=== PATIENT | male | born 1965 | race Caucasian/White ===

== ENCOUNTER 2017-08-07 10:09 | Inpatient (IN) ==
[2017-08-07] MEDS ORDERED: ONDANSETRON 4 MG/2 ML VIAL IV ONE (10:36)
[2017-08-07] MEDS ORDERED: 0.9 % SODIUM CHLORIDE 1,000 ML IV ONE ×2 (10:36→19:00)
[2017-08-07] MEDS ORDERED: ONDANSETRON ODT 4 MG TABLET SL ONE (11:33)
[2017-08-07] MEDS ORDERED: ELECTROLYTE,ORAL 1,000 ML SOLUTION PO ONE (12:03)
[2017-08-07 12:06] LABS: Basophils # (Auto) 0.1 K/mcL (0.0-0.3); Basophils % (Auto) 0.4 % (0.0-2.0); Eosinophils # (Auto) 0 K/mcL (0.0-0.7); Eosinophils % (Auto) 0 % (0.0-7.0); Lymphocytes # (Auto) 1.5 K/mcL (1.5-4.8); Lymphocytes % (Auto) 8.7 % (15.5-49.0); Mean Cell Volume 92.8 fL (80.0-100.0); Mean Corpuscular HGB Conc 33.4 g/dL (31.0-36.0); Monocytes # (Auto) 0.7 K/mcL (0.1-0.9); Monocytes % (Auto) 3.9 % (1.0-12.0); Platelet Count 462 K/mcL (140-440); RBC 5.79 M/mcL (4.50-5.90); Red Cell Distribution Width 12.8 % (11.5-14.5)
[2017-08-07 13:40] LABS: ALT/SGPT 33 U/l (0-40); Albumin 5.1 gm/dL (3.2-5.2); Albumin/Globulin Ratio 1.2 (1.0-2.3); Alkaline Phosphatase 118 U/L (39-117); Blood Urea Nitrogen 54 mg/dl (6-20)
[2017-08-07] MEDS ORDERED: 0.9 % SODIUM CHLORIDE 10 ML SYRINGE IV PRN (14:20)
--- NOTE | 2017-08-07 14:32 | Procedure Note ---
Procedures - Central Line Placement Right SC Consent obtained: verbal consent Time out performed: Yes Patient placed on monitor/pulse ox: Yes MD prep: mask, sterile gown, sterile gloves, cap Central line prep: 2% Chlorhexidine scrub (X 2) Local anesthesia used: lidocaine 1% Amount of anesthesia used (mls): 15 Ultrasound used for placement: No Central line lumen inserted: quad, 16 cm Post procedure: sutured in place, good blood return, all ports aspirated, flushed, capped, sterile dressing applied Post procedure x-ray: other (awaiting CXR) Patient tolerated procedure: well, no complications Complications: none Additional comments: called by Ed for PIV, attempt X 2, failed. Then learned of his Cr 6.2, pt denies any renal hx. Decision then made with Dr Espinoza in consult to place central line. Performed with min amount of difficulty, attempt SCV, unable to wire. Change to supraclavicular approach, done wo problem. Pt terrence well, received MORPHINE IM prior to procedure. Awaiting CXR result for placement.
--- NOTE | 2017-08-07 14:34 | Emergency Department Note ---
ED Note Addendum Note Addendum: I examined this patient and agree with the assessment and plan the mid-level provider.
--- NOTE | 2017-08-07 15:32 | Emergency Department Note ---
Abdominal Pain HPI - General Chief Complaint: Abdominal Pain Stated Complaint: vomiting abdominal pain Time Seen by Provider: 08/07/17 10:23 Source: patient Mode of arrival: ambulatory Limitations: no limitations - History of Present Illness HPI Narrative: 52-year-old male presents with a little bit of right lower back pain. States he has been vomiting at least 15 times a day since Saturday. He does acknowledge this is a chronic and ongoing issue. He has chronic abdominal pain with nausea and vomiting for which he sees Dr. Sevilla and has been to [facility] as well. He states they do not know what causes it. He states this exacerbation started on Saturday. He has not been able to get it under control since. No fever or chills. Does have constant nausea and vomiting. Denies diarrhea. No blood in his stool or emesis. States decreased urine output because he knows he is dehydrated and cannot keep anything down. He denies having a primary care provider. He has used marijuana at home which she believes normally helps with his abdominal pain and nausea which he uses on a daily basis but states this time it is not helping. He denies any cough or cold symptoms. No chest pain or shortness of breath. Describes his abdominal pain as being all over and exacerbated by vomiting. - Related Data Home Medications Medication Instructions Recorded Confirmed No Known Home Meds [No Known Home 08/07/17 08/07/17 Meds] Allergies Allergy/AdvReac Type Severity Reaction Status Date / Time No Known Drug Allergies Allergy Verified 01/16/16 07:08 Review of Systems All systems ED: reviewed and negative except as stated. Abdominal Pain PMH - Past Medical History Medical history: Reports: hypertension, renal disease, seizures, other (chronic pain, history of methamphetamine use) Family history: Reports: unable to obtain - Social History Smoking status: Current every day smoker Alcohol use: Reports: None Drug use: Reports: opiates, marijuana, methamphetamine Physical Exam Limitations: no limitations General appearance: alert, in no apparent distress Head: atraumatic, normocephalic, normal inspection Eye: Present: normal appearance. Absent: conjunctival injection ENT: TM's normal bilaterally, normal external ear exam, other (Mucous membranes are slightly dry on arrival) Neck: Present: normal inspection, trachea midline. Absent: tenderness, lymphadenopathy Chest: Present: normal inspection, symmetric chest wall rise Respiratory: Present: normal lung sounds bilaterally. Absent: respiratory distress, wheezes, accessory muscle use Cardiovascular: Present: regular rate, normal heart sounds Abdominal: Present: soft, tenderness (Diffuse moderate abdominal tenderness but no guarding. Patient is climbing all over the bed and is constantly fidgeting) , normal bowel sounds. Absent: distention, organomegaly, mass : Present: other (Please see urine dip) Extremities: Present: normal inspection, normal capillary refill. Absent: pedal edema Back: Present: CVA tenderness (R). Absent: CVA tenderness (L) Neurological: Present: alert, oriented X3 Psychiatric: Present: anxious Skin: Present: warm, dry, intact, normal color Course Course Narrative: Patient was here for a couple hours where we attempted IV access and were unsuccessful. Lab was able to get a CBC but not a CMP or further labs. Patient was given some oral Zofran and tolerated an oral fluid challenge but then continued dry heaving and having abdominal pain. After multiple failed IV attempts again anesthesia was called for IV placement and further lab draw. Central line was placed by Dr. Lin and at that time he also got a creatinine back eventually from lab off of a different draw that was 6.2. This is a significant increase is the highest I have seen in his previous records was in the threes. We will hydrate the patient with normal saline and we are awaiting CT results at this time. At [address] Dr[address] Read who is on-call for nephrology who agrees to consult. Dr. Lozano the hospitalist agrees to admit Vital Signs Temperature 97.4 F 08/07/17 10:10 Pulse Rate 94 H 08/07/17 10:10 Respiratory Rate 18 08/07/17 10:10 Blood Pressure 136/99 08/07/17 10:10 Pulse Oximetry (%) 99 08/07/17 10:10 Temperature 97.4 F 08/07/17 10:10 Pulse Rate 76 08/07/17 16:31 Respiratory Rate 20 08/07/17 16:52 Blood Pressure 202/106 08/07/17 16:56 Pulse Oximetry (%) 100 08/07/17 16:31 Abdominal Pain - Lab Data Lab results reviewed: Yes I reviewed the patient's lab results. Result diagrams: 08/07/17 11:42 08/07/17 12:42 Lab Results 06/08/07/17 08/07/17 Range/Units 11:42 11:42 12:42 WBC 17.5 H (4.5-11.0) K/mcL RBC 5.79 (4.50-5.90) M/mcL Hgb 18.0 H (13.5-16.5) g/dL Hct 53.7 (41.0-55.0) % MCV 92.8 (80.0-100.0) fL MCH 31.0 (26.0-34.0) pg MCHC 33.4 (31.0-36.0) g/dL RDW 12.8 (11.5-14.5) % Plt Count 462 H (140-440) K/mcL MPV 8.1 (7.4-10.4) fL Gran % 87.0 H (38.0-78.0) % Lymph % (Auto) 8.7 L (15.5-49.0) % [place] % (Auto) 3.9 (1.0-12.0) % Eos % (Auto) 0 (0.0-7.0) % Baso % (Auto) 0.4 (0.0-2.0) % Gran # 15.3 H (1.8-8.0) K/mcL Lymph # (Auto) 1.5 (1.5-4.8) K/mcL [place] # (Auto) 0.7 (0.1-0.9) K/mcL Eos # (Auto) 0 (0.0-0.7) K/mcL Baso # (Auto) 0.1 (0.0-0.3) K/mcL VBG Lactic Acid Sodium TNP 124 L Potassium TNP 4.3 Chloride TNP 74 L Carbon Dioxide TNP 22 Anion Gap TNP 28.0 H BUN TNP 54 H Creatinine TNP 6.2 H* GFR Calculation TNP 9 Glucose TNP 150 H Calcium TNP 9.4 Total Bilirubin TNP 0.8 AST TNP 27 ALT TNP 33 Alkaline Phosphatase TNP 118 H Total Protein TNP 9.2 H Albumin TNP 5.1 Globulin TNP 4.1 H Albumin/Globulin Ratio TNP 1.2 Urine Opiates Screen (NONDETECTED) Ur Oxycodone Screen (NONDETECTED) Urine Methadone Screen (NONDETECTED) Ur Barbiturates Screen (NONDETECTED) Ur Phencyclidine Scrn (NONDETECTED) Ur Amphetamines Screen (NONDETECTED) U Benzodiazepines Scrn (NONDETECTED) Urine Cocaine Screen (NONDETECTED) U Marijuana (THC) Screen (NONDETECTED) 08/07/17 08/07/17 08/07/17 Range/Units 12:42 14:30 15:59 WBC (4.5-11.0) K/mcL RBC (4.50-5.90) M/mcL Hgb (13.5-16.5) g/dL Hct (41.0-55.0) % MCV (80.0-100.0) fL MCH (26.0-34.0) pg MCHC (31.0-36.0) g/dL RDW (11.5-14.5) % Plt Count (140-440) K/mcL MPV (7.4-10.4) fL Gran % (38.0-78.0) % Lymph % (Auto) (15.5-49.0) % [place] % (Auto) (1.0-12.0) % Eos % (Auto) (0.0-7.0) % Baso % (Auto) (0.0-2.0) % Gran # (1.8-8.0) K/mcL Lymph # (Auto) (1.5-4.8) K/mcL [place] # (Auto) (0.1-0.9) K/mcL Eos # (Auto) (0.0-0.7) K/mcL Baso # (Auto) (0.0-0.3) K/mcL VBG Lactic Acid TNP 1.9 Sodium Potassium Chloride Carbon Dioxide Anion Gap BUN Creatinine GFR Calculation Glucose Calcium Total Bilirubin AST ALT Alkaline Phosphatase Total Protein Albumin Globulin Albumin/Globulin Ratio Urine Opiates Screen Suspect positive A (NONDETECTED) Ur Oxycodone Screen None detected (NONDETECTED) Urine Methadone Screen None detected (NONDETECTED) Ur Barbiturates Screen None detected (NONDETECTED) Ur Phencyclidine Scrn None detected (NONDETECTED) Ur Amphetamines Screen Suspect positive A (NONDETECTED) U Benzodiazepines Scrn Suspect positive A (NONDETECTED) Urine Cocaine Screen None detected (NONDETECTED) U Marijuana (THC) Screen Suspect positive A (NONDETECTED) - Radiology Data Radiology results reviewed: Yes I reviewed the patient's radiology results. Disposition Pt seen by [facility]/PA only: Yes Clinical Impression: Acute kidney failure, Dehydration, Abdominal pain, Vomiting Disposition: Xfer As Inpt ([facility]) Condition: Fair Time of Disposition: 17:10
--- NOTE | 2017-08-07 15:58 | Cat Scan Report ---
CLINICAL INFORMATION: Abdominal pain, flank pain and hematuria COMPARISON: 05/20/[address] TECHNIQUE: 0.625 mm helical slices were obtained from the mid heart through the subtrochanteric regions. Following reconstruction, 2.5 mm sagittal, coronal and axial reformatted images were processed and reviewed at bone and soft tissue windows.The exam was performed using radiation dose optimization techniques including, but not limited to, automated exposure control, adjustment of the mA and/or kV according to patient size and use of iterative reconstruction technique. FINDINGS: Both noncontrasted kidneys are normal and symmetric in size, position and configuration: The right is 10 x 5 cm and left is also 10 x 5 cm. 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 There is no evidence of stone or hydronephrosis. The main kidneys, upper collecting systems, ureters and urinary bladder are normal. Lung bases show no abnormality. No effusion. Visualized heart is unremarkable. Images through the abdomen show the gallbladder is surgically absent. Intrahepatic and common bile ducts are normal caliber - CBD 6 mm. The noncontrasted liver, adrenal glands, spleen, pancreas and aorta are normal. There is no free air, free fluid or adenopathy. Stomach, small bowel, large bowel and appendix are normal. Images through the pelvis show prostate, seminal vessel and urinary bladder to be normal. Moderate L5-S1 degenerative disc disease noted with disc spur, resulting in moderate IV foraminal narrowing. No other osseous abnormality. IMPRESSION: 1. 9.7 mm benign angiomyolipoma the anterior cortex mid left kidney - stable. No stone or other cause identified for hematuria Interpreted and Authenticated by: Jassi Bernabe 08/07/17
[2017-08-07] MEDS ORDERED: HYDROmorphone 2 MG/ML VIAL IV PRN (16:05)
[2017-08-07 16:41] LABS: Amphetamine Screen,Urine SUSPECT POSITIVE (NONDETECTED); Benzodiazepines Screen,Urine SUSPECT POSITIVE (NONDETECTED); Cocaine Screen,Urine NONE DETECTED (NONDETECTED); Opiate Screen,Urine SUSPECT POSITIVE (NONDETECTED); Oxycodone, Urine Screen NONE DETECTED (NONDETECTED)
[2017-08-07] MEDS ORDERED: LORazepam 2 MG/ML VIAL IV ONE (16:56)
--- NOTE | 2017-08-07 17:02 | XRay Report ---
CLINICAL INFORMATION: Central line placement COMPARISON: 07/12/2016 FINDINGS: Right subclavian central line tip overlies the SVC/azygos junction. No pneumothorax or other complication from line placement. Heart size, mediastinal and pulmonary vessels are normal. The lungs are clear. No effusions IMPRESSION: Negative chest - central line in satisfactory position Interpreted and Authenticated by: Jassi Bernabe 08/07/17
--- NOTE | 2017-08-07 17:12 | Nephrology Consult Note ---
History of Present Illness - Reason for Consult Patient information: Note initiated : 08/07/17 at 5:08 pm John Abernathy is a 52-year-old male presented to ED for abdominal pain, nausea and vomiting for 4 days and being admitted on 07/2017. Consult date: 08/07/17 acute renal failure, hyponatremia Requesting physician: Debra Glaser - Chief Complaint Abdominal pain, nausea and vomiting - History of Present Illness John Abernathy is a 52-year-old male with history of cyclic abdominal pain, nausea and vomiting, hypertension, history of cute kidney injury, history of seizures, history of methamphetamine and marijuana use presented to ED for abdominal pain , nausea and vomiting for 4 days 07/2017. Nephrology consultation was requested for acute kidney injury. Review of Systems ROS unobtainable: due to mental status Past History Past medical history: Medical History Laceration (Acute) Paronychia of right index finger (Acute) Cellulitis (Acute) Blister of finger with infection (Acute) Dehydration (Acute) Acute renal failure (Acute) Nausea & vomiting (Acute) Pancreatitis (Acute) PUD (peptic ulcer disease) (Acute) Abdominal pain (Acute) Bilious emesis (Acute) Amphetamine abuse (Acute) Past surgical history: None Past family history: No history of kidney disease in his parents or siblings Past social history: History of smoking, methamphetamine and marijuana use Medications and Allergies Home Medications Medication Instructions Recorded Confirmed Type No Known Home Meds [No Known Home 08/07/17 08/07/17 History Meds] Allergies Allergy/AdvReac Type Severity Reaction Status Date / Time No Known Drug Allergies Allergy Verified 01/16/16 07:08 Exam - Vital Signs Vital signs: Temp Pulse Resp BP Pulse Ox 97.4 F 76 20 202/106 100 08/07/17 10:10 08/07/17 16:31 08/07/17 16:52 08/07/17 16:56 08/07/17 16:31 - General Appearance General appearance: appears started age, frail EENT: mucous membranes dry Neck: supple Respiratory: wheezing Cardiology: no edema Gastrointestinal: no tenderness Integumentary: warm and dry Neurologic: obtunded Musculoskeletal: no deformities Results - Lab Results 08/07/17 11:42 08/07/17 12:42 Most recent lab results Calcium 9.4 mg/dl (8.6-10.4) 08/07/17 12:42 Assessment and Plan (1) Acute renal failure Acute kidney injury with dehydration, hyponatremia and high anion gap, present on arrival. ~There is no recent history of IV contrast administration or NSAID use. Acute glomerulonephritis or interstitial nephritis unlikely per work up. Work up: Urinalysis on 01/18/16: Yellow, Clear, pH 5.0, SG 1.010, Protein negative, occult blood 0.03. Urine random total protein/creatinine on 01/18/16: 70 mg/g creatinine. CT Abdomen and Pelvis without contrast on 08/07/17: Both noncontrasted kidneys are normal and symmetric in size, position and configuration: The right is 10 x 5 cm and left is also 10 x 5 cm. 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 There is no evidence of stone or hydronephrosis. The main kidneys, upper collecting systems, ureters and urinary bladder are normal. Treatment: NS 1 L IV bolus in ED. Recommendations: IV fluid resuscitation with NS at 100 ml/hour. No acute hemodialysis need. Avoid NSAIDs, nephrotoxic medications and IV contrast. Monitor BMP and urine output. Status: Acute Priority: Medium Qualifiers: Acute renal failure type: unspecified Qualified Code(s): N17.9 - Acute kidney failure, unspecified (2) Hyponatremia Unlikely to be chronic. Associated with severe dehydration and acute kidney injury. Recommendation: I would continue NS at 100 ml/hour. Status: Acute Priority: Medium
[2017-08-07] MEDS ORDERED: ACETAMINOPHEN 325 MG TABLET PO PRN (18:54)
[2017-08-07] MEDS ORDERED: POTASSIUM CHLORIDE 20 MEQ PACKET PO PRN (18:54)
[2017-08-07] MEDS ORDERED: MAGNESIUM SULFATE 2 GM/50 ML BAG IV PRN (18:54)
[2017-08-07] MEDS ORDERED: ONDANSETRON 4 MG/2 ML VIAL IV PRN (18:54)
[2017-08-07] MEDS ORDERED: ONDANSETRON 4 MG/2 ML VIAL ONE (19:01)
--- NOTE | 2017-08-07 19:08 | Internal Med History&Physical ---
Medical - H&P: [facility] Patient information: Note initiated : 08/07/17 at 7:04 pm Service Date, if different from initiated Date: [] Patient: John Abernathy a 52 y/o M admitted on 08/07/17 for vomiting abdominal pain. Chief Complaint: [] Chief complaint: nausea vomiting abdominal pain History of present illness: Mr. Abernathy is a 52 year old M with a history of methamphetamine abuse and prior hospitalization with renal failure and methamphetamine intoxication comes in with severe abdominal pain, nausea vomiting and weakness. His symptoms started roughly 36 hours ago with persistent nausea vomiting abdominal pain and inability to eat. Initial workup in the ER was significant for urine drug screen positive for methamphetamine along with blood pressures over 200, sodium 124, white count over 17,000, creatinine over 6, elevated anion gap 28 and mental status changes. Emergent central line was secured and IV fluids were started. After receiving crystalloids hospitalist service was consulted for admission light of acute renal failure and amphetamine intoxication Left eye evaluation patient is fairly sedated. Blood pressures over 160. He was not able to provide any history. Most of the history is obtained from review of medical records and from [facility]. Patient is afebrile, denies chest pain/diaphoresis. Appears calm Review of systems 10 point review systems was performed and is negative except as discussed above Medical - H&P: PMH Medical history: Medical History Laceration (Acute) Paronychia of right index finger (Acute) Cellulitis (Acute) Blister of finger with infection (Acute) Dehydration (Acute) Acute renal failure (Acute) Nausea & vomiting (Acute) Pancreatitis (Acute) PUD (peptic ulcer disease) (Acute) Abdominal pain (Acute) Bilious emesis (Acute) Amphetamine abuse (Acute) Pertinent family history: Could not be obtained Social history: History of marijuana/amphetamine use Medical - H&P: Meds Home Medications Medication Instructions Recorded Confirmed Type No Known Home Meds [No Known Home 08/07/17 08/07/17 History Meds] Allergies Allergy/AdvReac Type Severity Reaction Status Date / Time No Known Drug Allergies Allergy Verified 01/16/16 07:08 Medical - H&P: Exam - Constitutional Vitals: Temp Pulse Resp BP Pulse Ox 97.4 F 85 15 190/100 100 08/07/17 19:00 08/07/17 19:00 08/07/17 19:00 08/07/17 19:00 08/07/17 19:00 General appearance: no acute distress Exam: Sedated Pupils symmetric No facial droop Oral cavity dry No ear discharge Head normocephalic Neck no lymphadenopathy Chest right subclavian central line S1 and S2 regular rhythm Diminished breath sounds bases Abdomen soft Lower extremity mottling around knees Psych lethargic sedated Neuro moving all 4 extremities Medical - H&P: Reslt - Labs CBC & Chem 7: 08/08/17 03:49 08/08/17 03:49 Labs: Short CBC 08/07/17 Range/Units 11:42 WBC 17.5 H (4.5-11.0) K/mcL Hgb 18.0 H (13.5-16.5) g/dL Hct 53.7 (41.0-55.0) % Plt Count 462 H (140-440) K/mcL BMP 08/07/17 08/07/17 11:42 12:42 Sodium TNP 124 L Potassium TNP 4.3 Chloride TNP 74 L Carbon Dioxide TNP 22 BUN TNP 54 H Creatinine TNP 6.2 H* Glucose TNP 150 H Calcium TNP 9.4 Cardiac Enzymes 08/07/17 Range/Units 12:42 Troponin T < 0.01 (0-0.03) ng/ml Liver Function 08/07/17 08/07/17 Range/Units 11:42 12:42 Total Bilirubin TNP 0.8 AST TNP 27 ALT TNP 33 Alkaline Phosphatase TNP 118 H Albumin TNP 5.1 Medical - H&P: A/P (1) Amphetamine intoxication delirium Current visit: Yes Status: Acute * Amphetamine intoxication-continue aggressive benzodiazepines for psychomotor agitation/hypertension and symptom management. Continue crystalloids and supportive management. Transfer to ICU for close hemodynamic monitoring. Continue crystalloids. * Hypertensive urgency-secondary to methamphetamine. Continue benzodiazepines. Nitroprusside drip if inadequate control. * Acute renal failure- secondary to methamphetamine induced rhabdomyolysis/ volume depletion. Check CK . CT abdomen no evidence of obstructive uropathy. Continue aggressive crystalloids. * Full code Plan * Admitted to ICU * Symptomatic management/IV benzodiazepines/nitroprusside * Aggressive crystalloids Over 35 mins critical care time spent on management of Amphetamine overdose treatment, stabilizing pt and transfer to ICU
[2017-08-07 19:57] LABS: Creatine Kinase 865 IU/L (24-195)
[2017-08-07] MEDS: 0.9 % SODIUM CHLORIDE 250 ML IV SCH (20:00)
[2017-08-07] MEDS: NITROPRUSSIDE 50 MG in DEXTROSE 5% IN WATER 248 ML IV SCH (20:00)
[2017-08-07] MEDS: LORazepam 2 MG/ML VIAL IV PRN (20:12)
[2017-08-07] MEDS ORDERED: 0.9 % SODIUM CHLORIDE 10 ML SYRINGE IV SCH (21:00)
[2017-08-07] MEDS: LACTATED RINGERS 1,000 ML IV SCH (21:00)
[2017-08-07] MEDS: HEPARIN 5,000 UNIT/ML VIAL SQ SCH (21:08)
[2017-08-07] MEDS: SENNOSIDES/DOCUSATE SODIUM 1 TAB TABLET PO SCH (21:08)
[2017-08-07] MEDS: DOCUSATE SODIUM 100 MG CAPSULE PO SCH (21:08)
[2017-08-07] MEDS: 0.9 % SODIUM CHLORIDE 10 ML SYRINGE IV SCH (22:38)
[2017-08-08] MEDS: LORazepam 2 MG/ML VIAL IV PRN ×16 (00:15→23:45)
[2017-08-08] MEDS: LACTATED RINGERS 1,000 ML IV SCH ×4 (04:11→23:57)
[2017-08-08] MEDS: 0.9 % SODIUM CHLORIDE 10 ML SYRINGE IV SCH ×3 (05:25→23:45)
[2017-08-08 05:28] LABS: Mean Cell Volume 94.2 fL (80.0-100.0); Mean Corpuscular HGB Conc 33.7 g/dL (31.0-36.0); Mean Corpuscular Hemoglobin 31.7 pg (26.0-34.0); Platelet Count 392 K/mcL (140-440); RBC 4.49 M/mcL (4.50-5.90); Red Cell Distribution Width 12.7 % (11.5-14.5)
[2017-08-08 05:59] LABS: ALT/SGPT 25 U/l (0-40); Albumin 3.6 gm/dL (3.2-5.2); Albumin/Globulin Ratio 1.1 (1.0-2.3); Alkaline Phosphatase 99 U/L (39-117); Bilirubin,Direct < 0.2 mg/dL (0.0-0.3); Blood Urea Nitrogen 52 mg/dl (6-20); Gamma Glutamyl Transpeptidase 14 U/L (8-61); Uric Acid 11.3 mg/dL (2.5-8.0)
[2017-08-08 06:23] LABS: Band Neutrophils % 2 % (0-10); Lymphocytes % 10 % (15-49); Monocytes % (Manual) 8 % (1-12); Platelet Estimate NORMAL (NORMAL); RBC Morphology NORMAL (NORMAL); Segmented Neutrophils % 80 % (38-78)
[2017-08-08] MEDS: 0.9 % SODIUM CHLORIDE 250 ML IV SCH ×3 (06:42→18:06)
--- NOTE | 2017-08-08 07:13 | Nephrology Progress Note ---
Subjective Patient information: Note initiated : 08/08/17 at 7:10 am John Abernathy is a 52-year-old male with history of cyclic abdominal pain, nausea and vomiting, hypertension, history of cute kidney injury, history of seizures, history of methamphetamine and marijuana use presented to ED for abdominal pain , nausea and vomiting for 4 days 07/2017. Chief Complaint: Abdominal pain, nausea and vomiting Principal diagnosis: Acute kidney injury Pertinent ROS: Unavailable due to altered mental status Objective - Vital Signs Vital signs: Vital Signs Temp Pulse Pulse Resp BP BP Pulse Ox 08/08/17 05:00 81 13 174/98 100 08/08/17 04:44 88 14 171/93 100 08/08/17 04:23 89 14 215/105 100 08/08/17 03:59 87 15 215/102 100 08/08/17 03:08 87 13 208/115 100 08/08/17 02:43 13 177/108 08/08/17 02:07 82 21 207/98 99 08/08/17 01:51 82 16 201/112 100 08/08/17 01:15 83 24 H 196/106 100 08/08/17 00:01 73 9 L 164/88 100 08/08/17 00:00 100 08/07/17 23:01 79 14 150/94 99 08/07/17 22:01 88 14 145/90 100 08/07/17 21:01 84 15 174/91 98 08/07/17 20:51 13 179/100 08/07/17 20:42 99 08/07/17 20:23 13 196/112 99 08/07/17 20:08 76 12 192/106 100 08/07/17 20:00 75 18 201/106 100 08/07/17 19:08 92 H 12 162/115 100 08/07/17 19:00 97.4 F 85 15 190/100 100 08/07/17 18:51 98.0 F 86 18 162/115 99 08/07/17 18:31 198/114 08/07/17 18:01 21 163/103 08/07/17 17:46 85 15 190/100 100 08/07/17 17:45 82 18 100 08/07/17 17:31 16 169/98 08/07/17 17:16 81 16 192/109 100 08/07/17 17:01 75 13 211/115 100 08/07/17 16:56 202/106 08/07/17 16:52 20 08/07/17 16:46 13 224/112 08/07/17 16:31 76 13 218/114 100 08/07/17 16:16 84 16 207/142 100 08/07/17 16:05 86 20 208/114 100 08/07/17 16:03 15 225/145 08/07/17 16:01 12 200/121 08/07/17 15:46 16 203/115 08/07/17 15:32 89 16 159/111 100 08/07/17 10:10 97.4 F 94 H 18 136/99 99 Intake and Output 08/07/17 08/08/17 08/08/17 21:59 05:59 13:59 Intake Total 1999 1000 / 1000 Output Total 270 / 270 1089 / 1089 140 / 140 Balance 1730 / 1730 -89 / -89 -140 / -140 Intake: IV 1999 1000 / 1000 Lactated Ringers 1,000 ml @ 150 1000 / 1000 mls/hr IV .Q6H40M [facility] Rx#: [id number] Output: Urine Catheter Amount 270 / 270 1089 / 1089 140 / 140 Other: Weight 141 lb 2 oz Intake & Output: Intake & Output 08/07/17 08/08/17 08/08/17 21:59 05:59 13:59 Intake Total 1999 1000 / 1000 Output Total 270 / 270 1089 / 1089 140 / 140 Balance 1730 / 1730 -89 / -89 -140 / -140 Weight 141 lb 2 oz Intake: IV 1999 1000 / 1000 Lactated Ringers 1,000 ml @ 150 1000 / 1000 mls/hr IV .Q6H40M [facility] Rx#: [id number] Output: Urine Catheter Amount 270 / 270 1089 / 1089 140 / 140 - General Appearance General appearance: moderate distress EENT: mucous membranes dry Neck: supple Cardiology: no edema Gastrointestinal: no tenderness Integumentary: warm and dry Neurologic: confused, disoriented Musculoskeletal: no deformities Psychiatric: agitated - Lab 08/08/17 03:49 08/08/17 03:49 Most recent lab results Calcium 8.9 mg/dl (8.6-10.4) 08/08/17 03:49 Phosphorus 3.8 mg/dL (2.7-4.5) 08/08/17 03:49 Magnesium 2.7 mg/dL (1.6-2.5) H 08/08/17 03:49 Assessment and Plan (1) Acute renal failure Acute kidney injury with dehydration, hyponatremia and high anion gap, present on arrival. ~There is no recent history of IV contrast administration or NSAID use. Acute glomerulonephritis or interstitial nephritis unlikely per work up. Work up: Urinalysis on 01/18/16: Yellow, Clear, pH 5.0, SG 1.010, Protein negative, occult blood 0.03. Urine random total protein/creatinine on 01/18/16: 70 mg/g creatinine. CT Abdomen and Pelvis without contrast on 08/07/17: Both noncontrasted kidneys are normal and symmetric in size, position and configuration: The right is 10 x 5 cm and left is also 10 x 5 cm. 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 There is no evidence of stone or hydronephrosis. The main kidneys, upper collecting systems, ureters and urinary bladder are normal. Progress: Adequate urine output Creatinine trend down Hyponatremia, unlikely to be chronic, improving at a good rate Recommendations: IV fluids as needed. No acute hemodialysis need. Avoid NSAIDs, nephrotoxic medications and IV contrast. Monitor BMP and urine output. Status: Acute Priority: Medium Qualifiers: Acute renal failure type: unspecified Qualified Code(s): N17.9 - Acute kidney failure, unspecified
[2017-08-08] MEDS: DOCUSATE SODIUM 100 MG CAPSULE PO SCH ×2 (08:00→20:24)
[2017-08-08] MEDS: MULTIVIT,THER IRON,CA,FA & MIN 1 TABLET PO SCH (08:00)
[2017-08-08] MEDS: HEPARIN 5,000 UNIT/ML VIAL SQ SCH ×2 (08:35→21:26)
[2017-08-08] MEDS ORDERED: OLANZapine 10 MG VIAL IM ONE (11:50)
--- NOTE | 2017-08-08 13:11 | Internal Med Progress Note ---
Medical - PN: Subj Patient information: Note initiated : 08/08/17 at 1:08 pm Service Date, if different from initiated Date: [] Patient: John Abernathy a 52 y/o M admitted on 08/07/17 for Vomiting Abdominal Pain/ Amphetamine Intoxication. Chief Complaint: [] Interval history: Mr. Abernathy is a 52 year old M with a history of methamphetamine abuse and prior hospitalization with renal failure and methamphetamine intoxication comes in with severe abdominal pain, nausea vomiting and weakness. His symptoms started roughly 36 hours ago with persistent nausea vomiting abdominal pain and inability to eat. Initial workup in the ER was significant for urine drug screen positive for methamphetamine along with blood pressures over 200, sodium 124, white count over 17,000, creatinine over 6, elevated anion gap 28 and mental status changes. Initial troponin was negative. EKG sinus borderline QT elevation. Emergent central line was secured and IV fluids were started. After receiving crystalloids hospitalist service was consulted for admission light of acute renal failure and amphetamine intoxication Left eye evaluation patient is fairly sedated. Blood pressures over 160. He was not able to provide any history. Most of the history is obtained from review of medical records and from [facility]. Patient is afebrile, denies chest pain/diaphoresis. Appears calm 08/08-patient continues to be agitated with blood pressure over 200 requiring frequent benzodiazepine. On close hemodynamic watch. Creatinine down to 3.2 from 6.2 with aggressive crystalloids. CK over 800. White count down from 17.5 -16.1. Continue close hemodynamic monitoring in ICU. Use antipsychotics if inadequate agitation control on benzodiazepines. - Constitutional Vitals: Vital Signs Temp Pulse Resp BP Pulse Ox 98.2 F 87 18 188/118 100 08/08/17 12:08 08/08/17 07:39 08/08/17 12:08 08/08/17 12:08 08/08/17 12:08 Period Temp Pulse Resp BP Sys/Lee Pulse Ox Last 24 Hr 97.4 F-98.6 F 73-92 9-30 145-225/88-145 95-100 Intake and Output 08/07/17 08/08/17 08/08/17 21:59 05:59 13:59 Intake Total 1999 / 1999 1000 / 1000 1000 / 1000 Output Total 270 / 270 1089 / 1089 4070 / 4070 Balance 1730 / 1730 -89 / -89 -3070 / -3070 Weight 141 lb 2 oz Intake & Output: Intake & Output 08/07/17 08/08/17 08/08/17 21:59 05:59 13:59 Intake Total 1999 / 1999 1000 / 1000 1000 / 1000 Output Total 270 / 270 1089 / 1089 4070 / 4070 Balance 1730 / 1730 -89 / -89 -3070 / -3070 Weight 141 lb 2 oz Intake: IV 1999 1000 / 1000 1000 / 1000 Lactated Ringers 1,000 ml @ 150 1000 / 1000 1000 / 1000 mls/hr IV .Q6H40M [facility] Rx#: [id number] Output: Urine Catheter Amount 270 / 270 1089 / 1089 4070 / 4070 Exam: Anxious and agitated On restraints to prevent injury to self and others Telemetry tachycardia with systolics around 200 Foleys draining clear urine Nonlabored breathing Medical - PN: Obj Da - Labs CBC & Chem 7: 08/08/17 03:49 08/08/17 03:49 Labs: Abnormal Lab Results 08/08/17 08/08/17 08/07/17 03:49 03:49 19:00 WBC 16.1 H RBC 4.49 L Hgb Plt Count Gran % Lymph % (Auto) Gran # Seg Neutrophils % 80 H Lymphocytes % 10 L Sodium 128 L Chloride 88 L Anion Gap BUN 52 H Creatinine 3.2 H Glucose 124 H Uric Acid 11.3 H Magnesium 2.7 H Total Bilirubin 1.3 H Alkaline Phosphatase Total Creatine Kinase 865 H Total Protein Globulin Triglycerides 356 H Urine Opiates Screen Ur Amphetamines Screen U Benzodiazepines Scrn U Marijuana (THC) Screen 08/07/17 08/07/17 08/07/17 15:59 12:42 11:42 WBC 17.5 H RBC Hgb 18.0 H Plt Count 462 H Gran % 87.0 H Lymph % (Auto) 8.7 L Gran # 15.3 H Seg Neutrophils % Lymphocytes % Sodium 124 L Chloride 74 L Anion Gap 28.0 H BUN 54 H Creatinine 6.2 H* Glucose 150 H Uric Acid Magnesium Total Bilirubin Alkaline Phosphatase 118 H Total Creatine Kinase Total Protein 9.2 H Globulin 4.1 H Triglycerides Urine Opiates Screen Suspect positive A Ur Amphetamines Screen Suspect positive A U Benzodiazepines Scrn Suspect positive A U Marijuana (THC) Screen Suspect positive A Meds: Medications Acetaminophen (Tylenol) 650 mg PO Q4-6HP PRN PRN Reason: PAIN/FEVER > 101 Docusate Sodium (Colace) 100 mg PO BID [facility] Last Admin: 08/08/17 08:00 Dose: Not Given Heparin Sodium (Porcine) (Heparin) 5,000 unit SQ Q12 [facility] Last Admin: 08/08/17 08:35 Dose: 5,000 unit Lactated Ringer's (Lactated Ringers) 1,000 mls @ 150 mls/hr IV .Q6H40M [facility] Stop: 08/09/17 10:53 Last Admin: 08/08/17 10:53 Dose: 150 mls/hr Magnesium Sulfate (Magnesium Sulfate) 2 gm in 50 mls @ 50 mls/hr IV UD PRN PRN Reason: MG = or < 1.7 Sodium Nitroprusside 50 mg/ (Dextrose) 250 mls @ 10.81 mls/hr IV Q24H [facility]; 0.5 MCG/KG/MIN PRN Reason: Protocol Last Admin: 08/07/17 20:00 Dose: Not Given Sodium Chloride (Sodium Chloride 0.9%) 250 mls @ 20 mls/hr IV .[id number] [facility] Last Admin: 08/08/17 06:42 Dose: Not Given Iron Carb/Multivit/Electronic Security Technician/Folic Acid (Multivitamin W/Minerals) 1 tab PO DAILY [facility] Last Admin: 08/08/17 08:00 Dose: Not Given Lorazepam (Ativan) 2 - 4 mg IV Q10M PRN PRN Reason: ANXIETY/SEDATION Last Admin: 08/08/17 11:46 Dose: 4 mg Ondansetron HCl (Zofran) 4 mg IV Q4-6HP PRN PRN Reason: Nausea And Vomiting Potassium Chloride (Klor-Con) 40 meq PO DAILYP PRN PRN Reason: K+ < 3.5 Senna/Docusate Sodium (Senna Plus Tablet) 1 tab PO HS [facility] Last Admin: 08/07/17 21:08 Dose: 1 tab Sodium Chloride (Saline Flush) 10 ml IV Q8 [facility] Last Admin: 08/08/17 12:11 Dose: 10 ml Medical - PN: A/P - Time Spent With Patient Total time spent is greater than 50% in coordination of care (as documented) at patient's floor/unit and/or counseling patient: 25 - 35 minutes (1) Amphetamine intoxication delirium Status: Acute Assessment and plan: * Amphetamine intoxication - continue IV Ativan for agitation control, initiate antipsychotics. Continue crystalloids and supportive management. Continue close ICU monitoring * Hypertensive urgency-secondary to methamphetamine. On benzodiazepines with systolics around 180s. * Acute renal failure- secondary to methamphetamine induced rhabdomyolysis/ volume depletion. CK over 800.. CT abdomen no evidence of obstructive uropathy. Creatinine down from 6.2-3.2. Continue crystalloids. * Full code Plan * IV benzodiazepines/antipsychotic * Consult poison control Current Visit: Yes Medical - PN: Qual - VTE Deep Vein Thrombosis/Pulmonary Embolism Present on Admission: No
[2017-08-08] MEDS: NITROPRUSSIDE 50 MG in DEXTROSE 5% IN WATER 248 ML IV SCH ×2 (16:00→17:24)
[2017-08-08] MEDS: SENNOSIDES/DOCUSATE SODIUM 1 TAB TABLET PO SCH (20:24)
[2017-08-09] MEDS: LORazepam 2 MG/ML VIAL IV PRN ×12 (01:25→23:16)
[2017-08-09] MEDS: 0.9 % SODIUM CHLORIDE 10 ML SYRINGE IV SCH ×3 (05:19→22:53)
[2017-08-09 05:35] LABS: Mean Cell Volume 93.2 fL (80.0-100.0); Mean Corpuscular HGB Conc 33.7 g/dL (31.0-36.0); Mean Corpuscular Hemoglobin 31.4 pg (26.0-34.0); Platelet Count 363 K/mcL (140-440); RBC 4.47 M/mcL (4.50-5.90); Red Cell Distribution Width 13.2 % (11.5-14.5)
[2017-08-09 06:02] LABS: ALT/SGPT 19 U/l (0-40); Albumin 3.6 gm/dL (3.2-5.2); Albumin/Globulin Ratio 1.3 (1.0-2.3); Alkaline Phosphatase 94 U/L (39-117); Bilirubin,Direct 0.3 mg/dL (0.0-0.3); Blood Urea Nitrogen 39 mg/dl (6-20); Gamma Glutamyl Transpeptidase 14 U/L (8-61); Uric Acid 7.5 mg/dL (2.5-8.0)
[2017-08-09 06:25] LABS: Band Neutrophils % 2 % (0-10); Lymphocytes % 18 % (15-49); Monocytes % (Manual) 10 % (1-12); Platelet Estimate NORMAL (NORMAL); RBC Morphology NORMAL (NORMAL); Segmented Neutrophils % 70 % (38-78)
[2017-08-09] MEDS: 0.9 % SODIUM CHLORIDE 250 ML IV SCH (06:29)
[2017-08-09] MEDS: LACTATED RINGERS 1,000 ML IV SCH ×2 (07:08→14:21)
[2017-08-09] MEDS: MULTIVIT,THER IRON,CA,FA & MIN 1 TABLET PO SCH (07:09)
[2017-08-09] MEDS: DOCUSATE SODIUM 100 MG CAPSULE PO SCH ×2 (07:09→22:48)
[2017-08-09] MEDS: HEPARIN 5,000 UNIT/ML VIAL SQ SCH ×2 (07:14→22:54)
[2017-08-09] MEDS ORDERED: OLANZapine 10 MG VIAL IM SCH (07:15)
--- NOTE | 2017-08-09 07:36 | Nephrology Progress Note ---
Subjective Patient information: Note initiated : 08/09/17 at 7:34 am John Abernathy is a 52-year-old male with history of cyclic abdominal pain, nausea and vomiting, hypertension, history of cute kidney injury, history of seizures, history of methamphetamine and marijuana use presented to ED for abdominal pain , nausea and vomiting for 4 days 07/2017. Chief Complaint: Abdominal pain, nausea and vomiting Principal diagnosis: Acute kidney injury Pertinent ROS: Unavailable due to altered mental status Objective - Vital Signs Vital signs: Vital Signs Temp Pulse Resp BP Pulse Ox 08/09/17 07:24 98 08/09/17 06:04 11 L 100 08/09/17 05:47 22 141/90 08/09/17 05:31 16 144/82 08/09/17 05:20 18 08/09/17 05:17 15 151/85 08/09/17 05:01 16 138/76 08/09/17 04:46 17 119/67 08/09/17 04:31 18 112/65 08/09/17 04:16 17 117/72 08/09/17 04:01 16 131/86 08/09/17 03:31 17 118/77 98 08/09/17 03:16 17 108/64 98 08/09/17 03:06 17 103/63 98 08/09/17 03:05 17 98 08/09/17 02:16 17 114/90 100 08/09/17 02:11 17 113/77 99 08/09/17 02:06 17 115/77 99 08/09/17 02:04 17 99 08/09/17 02:01 18 120/74 99 08/09/17 02:00 98 08/09/17 01:56 17 121/65 99 08/09/17 01:51 17 109/74 99 08/09/17 01:46 19 95/70 99 08/09/17 01:42 18 99/62 100 08/09/17 01:11 14 159/104 08/09/17 01:06 17 165/84 100 08/09/17 01:02 16 99 08/09/17 01:01 18 149/76 100 08/09/17 00:56 17 123/74 98 08/09/17 00:51 18 113/74 98 08/09/17 00:46 17 129/70 98 08/09/17 00:41 18 111/68 98 18 00:36 19 91/65 98 18 00:31 18 99/58 98 18 00:26 18 87/64 98 08/09/17 00:21 19 89/58 98 18 00:19 18 98 08/09/17 00:18 19 88/56 97 08/09/17 00:16 19 86/56 08/09/17 00:11 20 109/64 08/09/17 00:06 19 123/69 08/09/17 00:02 98.5 F 24 H 126/72 08/08/17 23:56 13 163/120 100 08/08/17 23:51 17 143/82 98 08/08/17 23:46 17 136/83 98 08/08/17 23:36 20 165/94 99 08/08/17 23:31 21 114/86 97 08/08/17 23:26 20 118/79 97 08/08/17 23:21 20 118/78 97 08/08/17 23:16 19 117/76 96 08/08/17 23:11 19 118/67 96 08/08/17 23:06 19 114/66 96 08/08/17 23:03 20 96 08/08/17 23:01 20 123/66 96 18 22:56 21 113/73 95 18 22:51 17 111/68 95 18 22:46 20 125/73 94 18 22:41 22 117/74 95 18 22:36 22 103/66 18 22:31 17 135/77 99 18 22:26 22 164/90 97 18 22:22 20 175/69 98 18 22:17 20 158/105 98 18 22:11 22 150/106 08/08/17 22:06 21 174/103 100 18 22:01 20 153/102 100 18 21:56 19 171/103 100 0618 21:52 20 171/103 100 18 21:41 24 H 160/91 93 18 21:31 18 139/93 100 06/21/18 21:25 19 98 06/21/18 21:21 18 104/65 98 08/08/17 21:16 30 H 99/69 98 08/08/17 21:11 19 93/64 98 08/08/17 21:04 20 97/65 98 08/08/17 21:01 20 94/63 98 08/08/17 20:51 35 H 112/68 100 08/08/17 20:41 24 H 126/92 98 08/08/17 20:31 21 137/87 100 08/08/17 20:29 20 100 08/08/17 20:21 20 120/79 97 08/08/17 20:11 22 157/93 97 08/08/17 20:06 20 148/87 98 08/08/17 20:03 99.7 F H 20 132/78 97 08/08/17 20:00 96 08/08/17 19:56 15 135/89 99 08/08/17 19:51 21 167/101 98 08/08/17 19:49 20 97 08/08/17 19:46 99.7 F H 22 152/94 97 08/08/17 19:41 21 111/71 98 08/08/17 19:36 16 124/86 99 08/08/17 19:31 21 167/104 97 08/08/17 19:26 21 152/106 97 08/08/17 19:21 23 H 123/85 99 08/08/17 19:20 22 08/08/17 19:16 25 H 157/97 08/08/17 19:01 23 H 171/122 96 08/08/17 18:46 19 157/106 98 08/08/17 18:31 20 161/107 97 08/08/17 18:16 22 143/98 98 08/08/17 18:03 99.4 F H 21 118/87 99 08/08/17 17:26 21 156/99 100 08/08/17 17:21 22 137/88 100 08/08/17 17:16 15 118/84 100 08/08/17 17:11 18 168/110 100 08/08/17 17:06 20 181/107 97 08/08/17 17:01 21 159/103 98 08/08/17 16:56 20 116/82 98 06/21/18 16:46 21 185/111 100 08/08/17 16:41 18 187/106 100 08/08/17 16:36 16 193/110 98 08/08/17 16:31 21 181/114 99 08/08/17 16:01 18 215/113 98 08/08/17 15:16 98.0 F 22 209/120 99 08/08/17 15:01 18 219/125 100 08/08/17 14:01 98.1 F 18 149/95 100 08/08/17 14:00 103 H 21 100 08/08/17 13:28 14 194/120 100 08/08/17 13:27 15 194/120 100 08/08/17 12:08 98.2 F 18 188/118 100 08/08/17 11:01 17 202/107 100 08/08/17 10:14 98.3 F 20 183/106 97 08/08/17 09:02 98.6 F 20 151/107 97 08/08/17 08:06 30 H 165/113 97 08/08/17 07:39 87 15 95 Intake and Output 08/08/17 08/09/17 08/09/17 21:59 05:59 13:59 Intake Total 1016 / 1016 1007 / 1007 1000 / 1000 Output Total 2435 / 2435 1075 / 1075 125 / 125 Balance -1419 / -141 / 875 / 875 Intake: IV 1016 / 1016 1007 / 1007 1000 / 1000 Lactated Ringers 1,000 ml @ 150 975 / 975 985 / 985 1000 / 1000 mls/hr IV .Q6H40M [facility] Rx#: [id number] Nipride 50 mg In Dextrose 5% in 41 / 41 22 / 22 Water 248 ml @ 0.5 MCG/KG/MIN 10.81 mls/hr IV Q24H [facility] Rx#: [id number] Output: Urine Catheter Amount 2435 / 2435 1075 / 1075 125 / 125 Other: Weight 137 lb 1.6 oz Intake & Output: Intake & Output 08/08/17 08/09/17 08/09/17 21:59 05:59 13:59 Intake Total 1016 / 1016 1007 / 1007 1000 / 1000 Output Total 2435 / 2435 1075 / 1075 125 / 125 Balance -1419 / -141 -68 / -68 875 / 875 Weight 137 lb 1.6 oz Intake: IV 1016 / 1016 1007 / 1007 1000 / 1000 Lactated Ringers 1,000 ml @ 150 975 / 975 985 / 985 1000 / 1000 mls/hr IV .Q6H40M [facility] Rx#: [id number] Nipride 50 mg In Dextrose 5% in 41 / 41 / Water 248 ml @ 0.5 MCG/KG/MIN 10.81 mls/hr IV Q24H [facility] Rx#: [id number] Output: Urine Catheter Amount 2435 / 2435 1075 / 1075 125 / 125 - General Appearance General appearance: anxious EENT: mucous membranes dry Neck: supple Respiratory: clear Cardiology: no edema Gastrointestinal: no tenderness Integumentary: warm and dry Neurologic: obtunded Musculoskeletal: no deformities Psychiatric: agitated - Lab 08/09/17 03:58 08/09/17 03:58 Most recent lab results Calcium 9.0 mg/dl (8.6-10.4) 08/09/17 03:58 Phosphorus 3.1 mg/dL (2.7-4.5) 08/09/17 03:58 Magnesium 2.3 mg/dL (1.6-2.5) 08/09/17 03:58 Assessment and Plan (1) Acute renal failure Acute kidney injury with dehydration, hyponatremia and high anion gap, present on arrival. ~There is no recent history of IV contrast administration or NSAID use. Acute glomerulonephritis or interstitial nephritis unlikely per work up. Work up: Urinalysis on 01/18/16: Yellow, Clear, pH 5.0, SG 1.010, Protein negative, occult blood 0.03. Urine random total protein/creatinine on 01/18/16: 70 mg/g creatinine. CT Abdomen and Pelvis without contrast on 08/07/17: Both noncontrasted kidneys are normal and symmetric in size, position and configuration: The right is 10 x 5 cm and left is also 10 x 5 cm. 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 There is no evidence of stone or hydronephrosis. The main kidneys, upper collecting systems, ureters and urinary bladder are normal. Progress: Adequate urine output Creatinine trend down Hyponatremia, resolved. Nephrology will sign off. Status: Acute Priority: Medium Qualifiers: Acute renal failure type: unspecified Qualified Code(s): N17.9 - Acute kidney failure, unspecified
[2017-08-09] MEDS ORDERED: POTASSIUM CHLORIDE 20 MEQ, MAGNESIUM SULFATE 16.24 MEQ, THIAMINE 100 MG, MVI, ADULT NO.... IV SCH (09:00)
--- NOTE | 2017-08-09 09:46 | Internal Med Progress Note ---
Medical - PN: Subj Patient information: Note initiated : 08/09/17 at 9:43 am Service Date, if different from initiated Date: [] Patient: John Abernathy a 52 y/o M admitted on 08/07/17 for Vomiting Abdominal Pain/ Amphetamine Intoxication. Chief Complaint: [] Interval history: Mr. Abernathy is a 52 year old M with a history of methamphetamine abuse and prior hospitalization with renal failure and methamphetamine intoxication comes in with severe abdominal pain, nausea vomiting and weakness. His symptoms started roughly 36 hours ago with persistent nausea vomiting abdominal pain and inability to eat. Initial workup in the ER was significant for urine drug screen positive for methamphetamine along with blood pressures over 200, sodium 124, white count over 17,000, creatinine over 6, elevated anion gap 28 and mental status changes. Initial troponin was negative. EKG sinus borderline QT elevation. Emergent central line was secured and IV fluids were started. After receiving crystalloids hospitalist service was consulted for admission light of acute renal failure and amphetamine intoxication Left eye evaluation patient is fairly sedated. Blood pressures over 160. He was not able to provide any history. Most of the history is obtained from review of medical records and from [facility]. Patient is afebrile, denies chest pain/diaphoresis. Appears calm 08/08-patient continues to be agitated with blood pressure over 200 requiring frequent benzodiazepine. On close hemodynamic watch. Creatinine down to 3.2 from 6.2 with aggressive crystalloids. CK over 800. White count down from 17.5 -16.1. Continue close hemodynamic monitoring in ICU. Use antipsychotics if inadequate agitation control on benzodiazepines. 08/09-significant agitation and hypertension overnight requiring antipsychotics and Ativan. Started on nitroprusside drip with resultant improvement in blood pressures. This morning off nitroprusside. Weaning Ativan. Continue scheduled Zyprexa. Continue hydration. Creatinine down to 1.6. White count down to 11,000. CK down to 430 from 865. Overall clinical improvement noted. Case was discussed with poison control recommended continuing existing treatment /hydration/repeat CK level. Symptoms may last up to 5 days per poison control. Stable hemodynamics. Continue ICU care. On restraints to prevent injury to self and others - Constitutional Vitals: Vital Signs Temp Pulse Resp BP Pulse Ox 98.6 F 103 H 17 145/89 100 08/09/17 08:01 08/08/17 14:00 08/09/17 08:01 08/09/17 08:01 08/09/17 08:01 Period Temp Pulse Resp BP Sys/Lee Pulse Ox Last 24 Hr 98.0 F-99.7 F 103 11-35 86-219/56-125 93-100 Intake and Output 08/08/17 08/09/17 08/09/17 21:59 05:59 13:59 Intake Total 1016 / 1016 1007 / 1007 1000 / 1000 Output Total 2435 / 2435 1075 / 1075 295 / 295 Balance -1419 / -1419 -68 / -68 705 / 705 Weight 137 lb 1.6 oz Intake & Output: Intake & Output 08/08/17 08/09/17 08/09/17 21:59 05:59 13:59 Intake Total 1016 / 1016 1007 / 1007 1000 / 1000 Output Total 2435 / 2435 1075 / 1075 295 / 295 Balance -1419 / -1419 -68 / -68 705 / 705 Weight 137 lb 1.6 oz Intake: IV 1016 / 1016 1007 / 1007 1000 / 1000 Lactated Ringers 1,000 ml @ 150 975 / 975 985 / 985 1000 / 1000 mls/hr IV .Q6H40M [facility] Rx#: [id number] Nipride 50 mg In Dextrose 5% in Water 248 ml @ 0.5 MCG/KG/MIN 10.81 mls/hr IV Q24H [facility] Rx#: [id number] Output: Urine Catheter Amount 2435 / 2435 1075 / 1075 295 / 295 General appearance: cooperative, no acute distress Exam: agitated, minimally responsive Non labored breathing No lymphedema foleys draining clear urine Medical - PN: Obj Da - Labs CBC & Chem 7: 08/09/17 03:58 08/09/17 03:58 Labs: Abnormal Lab Results 08/09/17 08/09/17 08/09/17 03:58 03:58 03:58 WBC 11.6 H RBC 4.47 L Hgb Plt Count Gran % Lymph % (Auto) Gran # Seg Neutrophils % Lymphocytes % Sodium Chloride Anion Gap BUN 39 H Creatinine 1.6 H Glucose 124 H Uric Acid Magnesium Total Bilirubin 1.4 H Alkaline Phosphatase Total Creatine Kinase 430 H Total Protein Globulin Triglycerides 269 H Urine Opiates Screen Ur Amphetamines Screen U Benzodiazepines Scrn U Marijuana (THC) Screen 08/08/17 08/08/17 08/07/17 03:49 03:49 19:00 WBC 16.1 H RBC 4.49 L Hgb Plt Count Gran % Lymph % (Auto) Gran # Seg Neutrophils % 80 H Lymphocytes % 10 L Sodium 128 L Chloride 88 L Anion Gap BUN 52 H Creatinine 3.2 H Glucose 124 H Uric Acid 11.3 H Magnesium 2.7 H Total Bilirubin 1.3 H Alkaline Phosphatase Total Creatine Kinase 865 H Total Protein Globulin Triglycerides 356 H Urine Opiates Screen Ur Amphetamines Screen U Benzodiazepines Scrn U Marijuana (THC) Screen 08/07/17 08/07/17 08/07/17 15:59 12:42 11:42 WBC 17.5 H RBC Hgb 18.0 H Plt Count 462 H Gran % 87.0 H Lymph % (Auto) 8.7 L Gran # 15.3 H Seg Neutrophils % Lymphocytes % Sodium 124 L Chloride 74 L Anion Gap 28.0 H BUN 54 H Creatinine 6.2 H* Glucose 150 H Uric Acid Magnesium Total Bilirubin Alkaline Phosphatase 118 H Total Creatine Kinase Total Protein 9.2 H Globulin 4.1 H Triglycerides Urine Opiates Screen Suspect positive A Ur Amphetamines Screen Suspect positive A U Benzodiazepines Scrn Suspect positive A U Marijuana (THC) Screen Suspect positive A Meds: Medications Acetaminophen (Tylenol) 650 mg PO Q4-6HP PRN PRN Reason: PAIN/FEVER > 101 Docusate Sodium (Colace) 100 mg PO BID [facility] [place] Last Admin: 08/09/17 07:09 Dose: Not Given Heparin Sodium (Porcine) (Heparin) 5,000 unit SQ Q12 [facility] [place] Last Admin: 08/09/17 07:14 Dose: 5,000 unit Lactated Ringer's (Lactated Ringers) 1,000 mls @ 150 mls/hr IV .Q6H40M [facility] Stop: 08/09/17 10:53 Last Admin: 08/09/17 07:08 Dose: 150 mls/hr Magnesium Sulfate (Magnesium Sulfate) 2 gm in 50 mls @ 50 mls/hr IV UD PRN PRN Reason: MG = or < 1.7 Sodium Nitroprusside 50 mg/ (Dextrose) 250 mls @ 10.81 mls/hr IV Q24H [facility]; 0.5 MCG/KG/MIN PRN Reason: Protocol Last Titration: 08/09/17 00:25 Dose: 0 mcg/kg/min, 0 mls/hr Sodium Chloride (Sodium Chloride 0.9%) 250 mls @ 20 mls/hr IV .[id number] [facility] [place] Last Admin: 08/09/17 06:29 Dose: Not Given Lactated Ringer's (Lactated Ringers) 1,000 mls @ 150 mls/hr IV .Q6H40M [facility] [place] Magnesium Sulfate (Magnesium Sulfate) 2 gm in 50 mls @ 50 mls/hr IV DAILY [facility] Stop: 08/15/17 09:59 Potassium Chloride 20 meq/Thiamine HCl 100 mg/Multivitamins/Minerals 10 ml/ Sodium Chloride 1,021 mls @ 125 mls/hr IV DAILY [facility] [place] Stop: 08/15/17 17:11 Iron Carb/Multivit/Tax Analyst/Folic Acid (Multivitamin W/Minerals) 1 tab PO DAILY [facility] [place] Last Admin: 08/09/17 07:09 Dose: Not Given Lorazepam (Ativan) 2 - 4 mg IV Q10M PRN PRN Reason: ANXIETY/SEDATION Last Admin: 08/09/17 07:10 Dose: 4 mg Olanzapine (Zyprexa) 5 mg IM Q4HP PRN PRN Reason: Agitation Ondansetron HCl (Zofran) 4 mg IV Q4-6HP PRN PRN Reason: Nausea And Vomiting Potassium Chloride (Klor-Con) 40 meq PO DAILYP PRN PRN Reason: K+ < 3.5 Senna/Docusate Sodium (Senna Plus Tablet) 1 tab PO HS [facility] [place] Last Admin: 08/08/17 20:24 Dose: Not Given Sodium Chloride (Saline Flush) 10 ml IV Q8 [facility] [place] Last Admin: 08/09/17 05:19 Dose: 10 ml Medical - PN: A/P - Time Spent With Patient Total time spent is greater than 50% in coordination of care (as documented) at patient's floor/unit and/or counseling patient: 25 - 35 minutes (1) Amphetamine intoxication delirium Status: Acute Assessment and plan: * Amphetamine intoxication -clinically improving on IV Ativan/antipsychotics for agitation control, on supportive management. Continue ICU care * Acute mental status change-secondary to amphetamine intoxication * Hypertensive urgency- managed a nitroprusside drip/IV benzodiazepines. Secondary to methamphetamine. Suspect in addition alcohol withdrawal. * Acute renal failure- secondary to methamphetamine induced rhabdomyolysis/ volume depletion. CK over 800 out trending down to [address] CT abdomen no evidence of obstructive uropathy. Creatinine down from 6.2-3.2. Continue crystalloids. * Hypovolemic hyponatremia-clinically improving sodium up from 124-139 * Severe anion gap acidosis secondary to ketosis/volume depletion clinically resolved. Anion gap normalized from 28 to 13 * Full code Plan * Continue IV benzodiazepines/antipsychotic * Monitor renal function * Crystalloids * IV Thiamine Current Visit: Yes Medical - PN: Qual - VTE Deep Vein Thrombosis/Pulmonary Embolism Present on Admission: No
[2017-08-09] MEDS: MAGNESIUM SULFATE 2 GM/50 ML BAG IV SCH (10:00)
[2017-08-09] MEDS: POTASSIUM CHLORIDE 20 MEQ, THIAMINE 100 MG, MVI, ADULT NO.4 WITH VIT K 10 ML in 0.9 % S... IV SCH (10:24)
[2017-08-09] MEDS: HYDROcodone/APAP 5/325MG TABLET PO PRN ×2 (11:39→17:26)
[2017-08-09] MEDS: OLANZapine 10 MG VIAL IM PRN ×3 (11:41→22:17)
[2017-08-09] MEDS: NITROPRUSSIDE 50 MG in DEXTROSE 5% IN WATER 248 ML IV SCH (17:24)
[2017-08-09] MEDS: SENNOSIDES/DOCUSATE SODIUM 1 TAB TABLET PO SCH (22:48)
[2017-08-10] MEDS: LORazepam 2 MG/ML VIAL IV PRN ×13 (00:15→23:30)
[2017-08-10] MEDS: 0.9 % SODIUM CHLORIDE 250 ML IV SCH ×3 (00:59→21:40)
[2017-08-10] MEDS: LACTATED RINGERS 1,000 ML IV SCH ×4 (00:59→20:35)
[2017-08-10] MEDS: OLANZapine 10 MG VIAL IM PRN ×5 (02:30→22:11)
[2017-08-10] MEDS: 0.9 % SODIUM CHLORIDE 10 ML SYRINGE IV SCH ×3 (04:59→22:00)
[2017-08-10 05:15] LABS: Mean Cell Volume 94.3 fL (80.0-100.0); Mean Corpuscular HGB Conc 33.4 g/dL (31.0-36.0); Mean Corpuscular Hemoglobin 31.5 pg (26.0-34.0); Platelet Count 318 K/mcL (140-440); RBC 3.93 M/mcL (4.50-5.90); Red Cell Distribution Width 12.8 % (11.5-14.5)
[2017-08-10 05:33] LABS: ALT/SGPT 17 U/l (0-40); Albumin 3.2 gm/dL (3.2-5.2); Albumin/Globulin Ratio 1.4 (1.0-2.3); Alkaline Phosphatase 78 U/L (39-117); Bilirubin,Direct 0.3 mg/dL (0.0-0.3); Blood Urea Nitrogen 21 mg/dl (6-20); Gamma Glutamyl Transpeptidase 11 U/L (8-61); Uric Acid 5.3 mg/dL (2.5-8.0)
[2017-08-10 06:46] LABS: Band Neutrophils % 1 % (0-10); Eosinophils % (Manual) 3 % (0-7); Lymphocytes % 26 % (15-49); Monocytes % (Manual) 1 % (1-12); Platelet Estimate NORMAL (NORMAL); RBC Morphology NORMAL (NORMAL); Segmented Neutrophils % 68 % (38-78)
[2017-08-10] MEDS: MULTIVIT,THER IRON,CA,FA & MIN 1 TABLET PO SCH (07:00)
[2017-08-10] MEDS: DOCUSATE SODIUM 100 MG CAPSULE PO SCH ×2 (07:00→21:58)
[2017-08-10] MEDS ORDERED: NITROPRUSSIDE 50 MG in DEXTROSE 5% IN WATER 248 ML IV PRN (07:15)
[2017-08-10] MEDS: HYDROcodone/APAP 5/325MG TABLET PO PRN ×2 (07:53→13:09)
[2017-08-10] MEDS: HEPARIN 5,000 UNIT/ML VIAL SQ SCH ×2 (07:58→21:58)
[2017-08-10] MEDS: MAGNESIUM SULFATE 2 GM/50 ML BAG IV SCH (09:35)
[2017-08-10] MEDS: POTASSIUM CHLORIDE 20 MEQ, THIAMINE 100 MG, MVI, ADULT NO.4 WITH VIT K 10 ML in 0.9 % S... IV SCH (09:35)
--- NOTE | 2017-08-10 10:27 | Internal Med Progress Note ---
Medical - PN: Subj Patient information: Note initiated : 08/10/17 at 10:23 am Service Date, if different from initiated Date: [] Patient: John Abernathy a 52 y/o M admitted on 08/07/17 for Vomiting Abdominal Pain/ Amphetamine Intoxication. Chief Complaint: [] Interval history: Mr. Abernathy is a 52 year old M with a history of methamphetamine abuse and prior hospitalization with renal failure and methamphetamine intoxication comes in with severe abdominal pain, nausea vomiting and weakness. His symptoms started roughly 36 hours ago with persistent nausea vomiting abdominal pain and inability to eat. Initial workup in the ER was significant for urine drug screen positive for methamphetamine along with blood pressures over 200, sodium 124, white count over 17,000, creatinine over 6, elevated anion gap 28 and mental status changes. Initial troponin was negative. EKG sinus borderline QT elevation. Emergent central line was secured and IV fluids were started. After receiving crystalloids hospitalist service was consulted for admission light of acute renal failure and amphetamine intoxication Left eye evaluation patient is fairly sedated. Blood pressures over 160. He was not able to provide any history. Most of the history is obtained from review of medical records and from [facility]. Patient is afebrile, denies chest pain/diaphoresis. Appears calm 08/08-patient continues to be agitated with blood pressure over 200 requiring frequent benzodiazepine. On close hemodynamic watch. Creatinine down to 3.2 from 6.2 with aggressive crystalloids. CK over 800. White count down from 17.5 -16.1. Continue close hemodynamic monitoring in ICU. Use antipsychotics if inadequate agitation control on benzodiazepines. 08/09-significant agitation and hypertension overnight requiring antipsychotics and Ativan. Started on nitroprusside drip with resultant improvement in blood pressures. This morning off nitroprusside. Weaning Ativan. Continue scheduled Zyprexa. Continue hydration. Creatinine down to 1.6. White count down to 11,000. CK down to 430 from 865. Overall clinical improvement noted. Case was discussed with poison control recommended continuing existing treatment /hydration/repeat CK level. Symptoms may last up to 5 days per poison control. Stable hemodynamics. Continue ICU care. On restraints to prevent injury to self and others 08/10-patient persistently agitated confusion requiring antipsychotics. Systolics however much improved to 140s. Off nitroprusside drip. Attempting to wean benzodiazepines and antipsychotics. Start TPN for nutrition. Continue restraints due to high risk injury self and staff. No overnight telemetry events. Renal function back to baseline creatinine down to 1 from a peak of 6.2 - Constitutional Vitals: Vital Signs Temp Pulse Resp BP Pulse Ox 98.7 F 78 18 176/112 100 08/10/17 08:02 08/10/17 05:01 08/10/17 09:01 08/10/17 09:01 08/10/17 09:01 Period Temp Pulse Resp BP Sys/Lee Pulse Ox Last 24 Hr 97.8 F-98.7 F 67-84 10-22 115-176/57-128 96-100 Intake and Output 08/09/17 08/10/17 08/10/17 21:59 05:59 13:59 Intake Total 1999 1543 / 1543 Output Total 382 / 382 545 / 545 400 / 400 Balance 1618 / 1618 998 / 998 -400 / -400 Weight 139 lb 9.6 oz 139 lb 9.6 oz Patient Weight 08/11/17 05:59 Weight 139 lb 9.6 oz Intake & Output: Intake & Output 08/09/17 08/10/17 08/10/17 21:59 05:59 13:59 Intake Total 1999 1543 / 1543 Output Total 382 / 382 545 / 545 400 / 400 Balance 1618 / 1618 998 / 998 -400 / -400 Weight 139 lb 9.6 oz 139 lb 9.6 oz Intake: IV 1999 1543 / 1543 Lactated Ringers 1,000 ml @ 150 1000 / 1000 522 / 522 mls/hr IV .Q6H40M [facility] Rx#: [id number] Potassium Chloride 20 Meq 1021 / 1021 Vitamin B1 100 mg Infuvite Adult 10 ml In Sodium Chloride 0.9% 1,000 ml @ 125 mls/hr IV DAILY [facility] Rx#:[id number] Output: Urine Catheter Amount 382 / 382 545 / 545 400 / 400 General appearance: moderate distress Exam: Agitated and confused No telemetry events Nonlabored breathing Foleys draining clear urine Medical - PN: Obj Da - Labs CBC & Chem 7: 08/10/17 03:39 08/10/17 03:39 Labs: Abnormal Lab Results 08/10/17 08/10/17 08/09/17 03:39 03:39 03:58 WBC 11.1 H RBC 3.93 L Hgb 12.4 L Hct 37.1 L Plt Count Gran % Lymph % (Auto) Gran # Seg Neutrophils % Lymphocytes % Sodium Chloride Anion Gap BUN 21 H Creatinine Glucose Uric Acid Phosphorus 2.1 L Magnesium Total Bilirubin 1.1 H Alkaline Phosphatase Total Creatine Kinase 430 H Total Protein 5.5 L Globulin Triglycerides 168 H Urine Opiates Screen Ur Amphetamines Screen U Benzodiazepines Scrn U Marijuana (THC) Screen 08/09/17 08/09/17 08/08/17 03:58 03:58 03:49 WBC 11.6 H RBC 4.47 L Hgb Hct Plt Count Gran % Lymph % (Auto) Gran # Seg Neutrophils % Lymphocytes % Sodium 128 L Chloride 88 L Anion Gap BUN 39 H 52 H Creatinine 1.6 H 3.2 H Glucose 124 H 124 H Uric Acid 11.3 H Phosphorus Magnesium 2.7 H Total Bilirubin 1.4 H 1.3 H Alkaline Phosphatase Total Creatine Kinase Total Protein Globulin Triglycerides 269 H 356 H Urine Opiates Screen Ur Amphetamines Screen U Benzodiazepines Scrn U Marijuana (THC) Screen 08/08/17 08/07/17 08/07/17 03:49 19:00 15:59 WBC 16.1 H RBC 4.49 L Hgb Hct Plt Count Gran % Lymph % (Auto) Gran # Seg Neutrophils % 80 H Lymphocytes % 10 L Sodium Chloride Anion Gap BUN Creatinine Glucose Uric Acid Phosphorus Magnesium Total Bilirubin Alkaline Phosphatase Total Creatine Kinase 865 H Total Protein Globulin Triglycerides Urine Opiates Screen Suspect positive A Ur Amphetamines Screen Suspect positive A U Benzodiazepines Scrn Suspect positive A U Marijuana (THC) Screen Suspect positive A 08/07/17 08/07/17 12:42 11:42 WBC 17.5 H RBC Hgb 18.0 H Hct Plt Count 462 H Gran % 87.0 H Lymph % (Auto) 8.7 L Gran # 15.3 H Seg Neutrophils % Lymphocytes % Sodium 124 L Chloride 74 L Anion Gap 28.0 H BUN 54 H Creatinine 6.2 H* Glucose 150 H Uric Acid Phosphorus Magnesium Total Bilirubin Alkaline Phosphatase 118 H Total Creatine Kinase Total Protein 9.2 H Globulin 4.1 H Triglycerides Urine Opiates Screen Ur Amphetamines Screen U Benzodiazepines Scrn U Marijuana (THC) Screen Meds: Medications Acetaminophen (Tylenol) 650 mg PO Q4-6HP PRN PRN Reason: PAIN/FEVER > 101 Hydrocodone Bitart/Acetaminophen ([place] 5/325mg) 1 tab PO Q4HP PRN PRN Reason: PAIN LEVEL 3-6 Last Admin: 08/10/17 07:53 Dose: 1 tab Docusate Sodium (Colace) 100 mg PO BID [facility] Last Admin: 08/10/17 07:00 Dose: Not Given Heparin Sodium (Porcine) (Heparin) 5,000 unit SQ Q12 [facility] Last Admin: 08/10/17 07:58 Dose: 5,000 unit Magnesium Sulfate (Magnesium Sulfate) 2 gm in 50 mls @ 50 mls/hr IV UD PRN PRN Reason: MG = or < 1.7 Sodium Chloride (Sodium Chloride 0.9%) 250 mls @ 20 mls/hr IV .[id number] [facility] Last Admin: 08/10/17 09:30 Dose: Not Given Lactated Ringer's (Lactated Ringers) 1,000 mls @ 150 mls/hr IV .Q6H40M [facility] Last Admin: 08/10/17 04:28 Dose: 150 mls/hr Magnesium Sulfate (Magnesium Sulfate) 2 gm in 50 mls @ 50 mls/hr IV DAILY [facility] Stop: 08/15/17 09:59 Last Admin: 08/10/17 09:35 Dose: 50 mls/hr Potassium Chloride 20 meq/Thiamine HCl 100 mg/Multivitamins/Minerals 10 ml/ Sodium Chloride 1,021 mls @ 125 mls/hr IV DAILY [facility] Stop: 08/15/17 17:11 Last Admin: 08/10/17 09:35 Dose: 125 mls/hr Sodium Nitroprusside 50 mg/ (Dextrose) 250 mls @ 10.81 mls/hr IV Q24HP PRN; Protocol; 0.5 MCG/KG/MIN PRN Reason: Hypertension Iron Carb/Multivit/[place]/Folic Acid (Multivitamin W/Minerals) 1 tab PO DAILY [facility] Last Admin: 08/10/17 07:00 Dose: Not Given Lorazepam (Ativan) 2 - 4 mg IV Q10M PRN PRN Reason: ANXIETY/SEDATION Last Admin: 08/10/17 09:35 Dose: 4 mg Olanzapine (Zyprexa) 5 mg IM Q4HP PRN PRN Reason: Agitation Last Admin: 08/10/17 06:53 Dose: 5 mg Ondansetron HCl (Zofran) 4 mg IV Q4-6HP PRN PRN Reason: Nausea And Vomiting Potassium Chloride (Klor-Con) 40 meq PO DAILYP PRN PRN Reason: K+ < 3.5 Senna/Docusate Sodium (Senna Plus Tablet) 1 tab PO HS [facility] Last Admin: 08/09/17 22:48 Dose: Not Given Sodium Chloride (Saline Flush) 10 ml IV Q8 [facility] Last Admin: 08/10/17 04:59 Dose: 10 ml Medical - PN: A/P - Time Spent With Patient Total time spent is greater than 50% in coordination of care (as documented) at patient's floor/unit and/or counseling patient: 15 - 24 minutes (1) Amphetamine intoxication delirium Status: Acute Assessment and plan: * Acute mental status change-secondary to amphetamine intoxication. Continue restraints due to risk of injury to self and others * Amphetamine intoxication - clinically improving. Weaning IV Ativan/ antipsychotics * Nutrition start TPN * Hypertensive urgency- clinically resolved off nitroprusside drip. * Acute renal failure- clinically resolved. Creatinine down to 1. * Mild rhabdomyolysis-clinically resolved * Hypovolemic hyponatremia -clinically resolved * Severe anion gap acidosis secondary to ketosis/volume depletion -resolved * Full code Plan * Start weaning IV benzodiazepines/antipsychotic * Start TPN * Crystalloids * IV Thiamine Current Visit: Yes Medical - PN: Qual - VTE Deep Vein Thrombosis/Pulmonary Embolism Present on Admission: No
[2017-08-10] MEDS ORDERED: TPN PER PHARMACY IV SCH (12:20)
[2017-08-10] MEDS ORDERED: DEXTROSE 50% 50 ML VIAL IV PRN (12:24)
[2017-08-10] MEDS ORDERED: [UNRECOGNIZED DRUG - REMARK] IV SCH (14:00)
[2017-08-10] MEDS: FAT EMULSION 20% 250 ML in PREMIX 1 BAG IV SCH (17:50)
[2017-08-10] MEDS: INSULIN LISPRO 1 UNIT/0.01 ML UNIT SQ SCH (18:02)
[2017-08-10] MEDS ORDERED: PROMETHAZINE 25 MG/ML VIAL ONE (21:22)
[2017-08-10] MEDS: SENNOSIDES/DOCUSATE SODIUM 1 TAB TABLET PO SCH (21:59)
[2017-08-11] MEDS: LORazepam 2 MG/ML VIAL IV PRN ×12 (00:10→23:42)
[2017-08-11] MEDS: INSULIN LISPRO 1 UNIT/0.01 ML UNIT SQ SCH ×4 (00:23→17:53)
[2017-08-11] MEDS: LACTATED RINGERS 1,000 ML IV SCH ×3 (00:28→09:46)
[2017-08-11 04:48] LABS: Mean Cell Volume 93.7 fL (80.0-100.0); Mean Corpuscular HGB Conc 34.5 g/dL (31.0-36.0); Mean Corpuscular Hemoglobin 32.3 pg (26.0-34.0); Platelet Count 308 K/mcL (140-440); RBC 3.75 M/mcL (4.50-5.90); Red Cell Distribution Width 12.8 % (11.5-14.5)
[2017-08-11 05:12] LABS: ALT/SGPT 18 U/l (0-40); Albumin 3.3 gm/dL (3.2-5.2); Albumin/Globulin Ratio 1.4 (1.0-2.3); Alkaline Phosphatase 81 U/L (39-117); Bilirubin,Direct 0.2 mg/dL (0.0-0.3); Blood Urea Nitrogen 11 mg/dl (6-20); Gamma Glutamyl Transpeptidase 10 U/L (8-61); Uric Acid 3.5 mg/dL (2.5-8.0)
[2017-08-11] MEDS: OLANZapine 10 MG VIAL IM PRN (05:36)
[2017-08-11] MEDS: 0.9 % SODIUM CHLORIDE 10 ML SYRINGE IV SCH ×3 (05:40→21:18)
[2017-08-11 06:09] LABS: Band Neutrophils % 2 % (0-10); Eosinophils % (Manual) 1 % (0-7); Lymphocytes % 10 % (15-49); Monocytes % (Manual) 8 % (1-12); Platelet Estimate PN (NORMAL); RBC Morphology NORMAL (NORMAL); Segmented Neutrophils % 79 % (38-78)
[2017-08-11] MEDS: PROMETHAZINE 25 MG/ML VIAL IV PRN ×4 (07:28→20:57)
[2017-08-11] MEDS: DOCUSATE SODIUM 100 MG CAPSULE PO SCH ×2 (08:01→21:18)
[2017-08-11] MEDS: HEPARIN 5,000 UNIT/ML VIAL SQ SCH ×2 (08:37→23:45)
[2017-08-11] MEDS: 0.9 % SODIUM CHLORIDE 250 ML IV SCH ×2 (08:38→23:46)
--- NOTE | 2017-08-11 11:58 | Internal Med Progress Note ---
Medical - PN: Subj Patient information: Note initiated : 08/11/17 at 11:56 am Service Date, if different from initiated Date: [] Patient: John Abernathy a 52 y/o M admitted on 08/07/17 for Vomiting Abdominal Pain/ Amphetamine Intoxication. Chief Complaint: [] Interval history: Mr. Abernathy is a 52 year old M with a history of methamphetamine abuse and prior hospitalization with renal failure and methamphetamine intoxication comes in with severe abdominal pain, nausea vomiting and weakness. His symptoms started roughly 36 hours ago with persistent nausea vomiting abdominal pain and inability to eat. Initial workup in the ER was significant for urine drug screen positive for methamphetamine along with blood pressures over 200, sodium 124, white count over 17,000, creatinine over 6, elevated anion gap 28 and mental status changes. Initial troponin was negative. EKG sinus borderline QT elevation. Emergent central line was secured and IV fluids were started. After receiving crystalloids hospitalist service was consulted for admission light of acute renal failure and amphetamine intoxication Left eye evaluation patient is fairly sedated. Blood pressures over 160. He was not able to provide any history. Most of the history is obtained from review of medical records and from [facility]. Patient is afebrile, denies chest pain/diaphoresis. Appears calm 08/08-patient continues to be agitated with blood pressure over 200 requiring frequent benzodiazepine. On close hemodynamic watch. Creatinine down to 3.2 from 6.2 with aggressive crystalloids. CK over 800. White count down from 17.5 -16.1. Continue close hemodynamic monitoring in ICU. Use antipsychotics if inadequate agitation control on benzodiazepines. 08/09-significant agitation and hypertension overnight requiring antipsychotics and Ativan. Started on nitroprusside drip with resultant improvement in blood pressures. This morning off nitroprusside. Weaning Ativan. Continue scheduled Zyprexa. Continue hydration. Creatinine down to 1.6. White count down to 11,000. CK down to 430 from 865. Overall clinical improvement noted. Case was discussed with poison control recommended continuing existing treatment /hydration/repeat CK level. Symptoms may last up to 5 days per poison control. Stable hemodynamics. Continue ICU care. On restraints to prevent injury to self and others 08/10-patient persistently agitated confusion requiring antipsychotics. Systolics however much improved to 140s. Off nitroprusside drip. Attempting to wean benzodiazepines and antipsychotics. Start TPN for nutrition. Continue restraints due to high risk injury self and staff. No overnight telemetry events. Renal function back to baseline creatinine down to 1 from a peak of 6.2 08/11-patient continues to be agitated requiring antipsychotics and benzo has been. Blood pressures around 140s. Attempting to wean off benzodiazepines. CT head rule out secondary process as patient is 72 hours from amphetamine ingestion and symptoms should have resolved including tachycardia and hypertension. Persistence of symptoms may indicate additional etiology including unknown toxic substance ingestion, alcohol withdrawal, substance induced psychosis or a combination of above. Continue close ICU monitoring. Continue TPN until patient able to tolerate orally - Constitutional Vitals: Vital Signs Temp Pulse Resp BP Pulse Ox 98.6 F 104 H 20 176/101 96 08/11/17 08:01 08/11/17 02:01 08/11/17 09:01 08/11/17 09:01 08/11/17 09:01 Period Temp Pulse Resp BP Sys/Lee Pulse Ox Last 24 Hr 98.0 F-100.2 F 81-110 9-30 123-223/74-124 96-100 Intake and Output 08/10/17 08/11/17 08/11/17 21:59 05:59 13:59 Intake Total 2020 1052 / 1052 1207 / 1207 Output Total 2004 1100 / 1100 2280 / 2280 Balance 16 16 -48 / -48 -1073 / -1073 Weight 139 lb 9.6 oz Intake & Output: Intake & Output 08/10/17 08/11/17 08/11/17 21:59 05:59 13:59 Intake Total 2020 1052 / 1052 1207 / 1207 Output Total 2004 1100 / 1100 2280 / 2280 Balance -48 / -48 -1073 / -1073 Weight 139 lb 9.6 oz Intake: IV 2020 1052 / 1052 1207 / 1207 Intralipid 20% 250 ml In Premix 250 / 250 1 Bag @ 25 mls/hr IV Q24H [facility] Rx#:[id number] Lactated Ringers 1,000 ml @ 150 1000 / 1000 1000 / 1000 957 / 957 mls/hr IV .Q6H40M [facility] Rx#: [id number] Nipride 50 mg In Dextrose 5% in 52 / 52 Water 248 ml @ 0.5 MCG/KG/MIN 10.81 mls/hr IV Q24HP [facility] Rx#: [id number] Output: Urine Catheter Amount 2004 1050 / 1050 2280 / 2280 Emesis 50 / 50 Other: Stool Size Small Stool Color Brown Stool Consistency Watery General appearance: no acute distress Exam: Anxious and agitated on restraints nonlabored breathing No telemetry events Foleys draining clear urine Medical - PN: Obj Da - Labs CBC & Chem 7: 08/11/17 03:30 08/11/17 03:30 Labs: Abnormal Lab Results 08/11/17 08/11/17 08/10/17 03:30 03:30 12:52 WBC 12.4 H RBC 3.75 L Hgb 12.1 L Hct 35.1 L Seg Neutrophils % 79 H Lymphocytes % 10 L BUN Creatinine Glucose 144 H Calcium 8.3 L Phosphorus 2.5 L Total Bilirubin Lactate Dehydrogenase 257 H Total Creatine Kinase Total Protein 5.7 L Prealbumin 18.3 L Triglycerides 08/10/17 08/10/17 08/09/17 03:39 03:39 03:58 WBC 11.1 H RBC 3.93 L Hgb 12.4 L Hct 37.1 L Seg Neutrophils % Lymphocytes % BUN 21 H Creatinine Glucose Calcium Phosphorus 2.1 L Total Bilirubin 1.1 H Lactate Dehydrogenase Total Creatine Kinase 430 H Total Protein 5.5 L Prealbumin Triglycerides 168 H 08/09/17 08/09/17 03:58 03:58 WBC 11.6 H RBC 4.47 L Hgb Hct Seg Neutrophils % Lymphocytes % BUN 39 H Creatinine 1.6 H Glucose 124 H Calcium Phosphorus Total Bilirubin 1.4 H Lactate Dehydrogenase Total Creatine Kinase Total Protein Prealbumin Triglycerides 269 H Meds: Medications Acetaminophen (Tylenol) 650 mg PO Q4-6HP PRN PRN Reason: PAIN/FEVER > 101 Hydrocodone Bitart/Acetaminophen ([place] 5/325mg) 1 tab PO Q4HP PRN PRN Reason: PAIN LEVEL 3-6 Last Admin: 08/10/17 13:09 Dose: 1 tab Dextrose (Dextrose 50%) 25 ml IV UD PRN PRN Reason: Hypoglycemia Diagnostic Test (Pha) (Accu-Chek) 1 each FS Q6 [facility] Last Admin: 08/11/17 11:37 Dose: 1 each Docusate Sodium (Colace) 100 mg PO BID [facility] Last Admin: 08/11/17 08:01 Dose: Not Given Heparin Sodium (Porcine) (Heparin) 5,000 unit SQ Q12 [facility] Last Admin: 08/11/17 08:37 Dose: 5,000 unit Magnesium Sulfate (Magnesium Sulfate) 2 gm in 50 mls @ 50 mls/hr IV UD PRN PRN Reason: MG = or < 1.7 Last Admin: 08/11/17 08:00 Dose: 50 mls/hr Sodium Chloride (Sodium Chloride 0.9%) 250 mls @ 20 mls/hr IV .[id number] [facility] Last Admin: 08/11/17 08:38 Dose: Not Given Sodium Nitroprusside 50 mg/ (Dextrose) 250 mls @ 10.81 mls/hr IV Q24HP PRN; Protocol; 0.5 MCG/KG/MIN PRN Reason: Hypertension Last Titration: 08/11/17 01:57 Dose: 0.75 mcg/kg/min, 16.22 mls/hr Fat Emulsion Intravenous 250 (ml/ Premix) 250 mls @ 25 mls/hr IV Q24H [facility] Last Infusion: 08/11/17 06:00 Dose: Infused Potassium Chloride 40 meq/Potassium Phosphate 60 meq/Multivitamins/Minerals 10 ml/Selenium 60 mcg/ Amino Acids 2,045.1364 mls @ 30 mls/hr IV Q24H [facility] Stop: 08/11/17 13:59 Last Admin: 08/10/17 13:59 Dose: 30 mls/hr Potassium Chloride 80 meq/Potassium Phosphate 60 meq/Multivitamins/Minerals 10 ml/Selenium 60 mcg/ Amino Acids 2,065.1364 mls @ 65 mls/hr IV Q24H [facility] Insulin Human Lispro (Humalog) 0 unit SQ Q6 [facility] PRN Reason: Protocol Last Admin: 08/11/17 11:42 Dose: Not Given Lorazepam (Ativan) 2 - 4 mg IV Q10M PRN PRN Reason: ANXIETY/SEDATION Last Admin: 08/11/17 09:44 Dose: 4 mg Olanzapine (Zyprexa) 5 mg IM Q4HP PRN PRN Reason: Agitation Last Admin: 08/11/17 05:36 Dose: 5 mg Ondansetron HCl (Zofran) 4 mg IV Q4-6HP PRN PRN Reason: Nausea And Vomiting Last Admin: 08/10/17 19:56 Dose: 4 mg Potassium Chloride (Klor-Con) 40 meq PO DAILYP PRN PRN Reason: K+ < 3.5 Promethazine HCl (Phenergan) 25 mg IV Q4HP PRN PRN Reason: Nausea And Vomiting Last Admin: 08/11/17 11:37 Dose: 25 mg Senna/Docusate Sodium (Senna Plus Tablet) 1 tab PO HS [facility] Last Admin: 08/10/17 21:59 Dose: Not Given Sodium Chloride (Saline Flush) 10 ml IV Q8 [facility] Last Admin: 08/11/17 05:40 Dose: 10 ml Medical - PN: A/P - Time Spent With Patient Total time spent is greater than 50% in coordination of care (as documented) at patient's floor/unit and/or counseling patient: 15 - 24 minutes (1) Amphetamine intoxication delirium Status: Acute Assessment and plan: * Acute mental status change-secondary to amphetamine intoxication. Continue restraints due to risk of injury to self and others * Amphetamine intoxication - clinically improving. Weaning IV Ativan/ antipsychotics * Nutrition start TPN * Hypertensive urgency- clinically resolved off nitroprusside drip. * Acute renal failure- clinically resolved. Creatinine down to 1. * Mild rhabdomyolysis-clinically resolved * Hypovolemic hyponatremia -clinically resolved * Severe anion gap acidosis secondary to ketosis/volume depletion -resolved * Full code Plan * attempt weaning IV benzodiazepines/antipsychotic * CT head under conscious sedation * ICU care Current Visit: Yes Medical - PN: Qual - VTE Deep Vein Thrombosis/Pulmonary Embolism Present on Admission: No
[2017-08-11] MEDS ORDERED: [UNRECOGNIZED DRUG - REMARK] IV SCH (14:00)
[2017-08-11] MEDS ORDERED: NITROPRUSSIDE 50 MG in DEXTROSE 5% IN WATER 248 ML IV SCH (15:30)
[2017-08-11] MEDS: FAT EMULSION 20% 250 ML in PREMIX 1 BAG IV SCH (16:00)
[2017-08-11] MEDS: HYDROcodone/APAP 5/325MG TABLET PO PRN (19:15)
[2017-08-11] MEDS: SENNOSIDES/DOCUSATE SODIUM 1 TAB TABLET PO SCH (21:18)
[2017-08-12] MEDS: INSULIN LISPRO 1 UNIT/0.01 ML UNIT SQ SCH ×2 (00:16→05:56)
[2017-08-12] MEDS: LORazepam 2 MG/ML VIAL IV PRN ×2 (01:56→07:31)
[2017-08-12 05:01] LABS: Mean Corpuscular HGB Conc 33.9 g/dL (31.0-36.0); Mean Corpuscular Hemoglobin 31.9 pg (26.0-34.0); Platelet Count 288 K/mcL (140-440); Red Cell Distribution Width 13.2 % (11.5-14.5)
[2017-08-12 05:37] LABS: ALT/SGPT 18 U/l (0-40); Albumin 3.5 gm/dL (3.2-5.2); Albumin/Globulin Ratio 1.8 (1.0-2.3); Alkaline Phosphatase 69 U/L (39-117); Bilirubin,Direct < 0.2 mg/dL (0.0-0.3); Blood Urea Nitrogen 12 mg/dl (6-20); Gamma Glutamyl Transpeptidase 11 U/L (8-61); Uric Acid 2.4 mg/dL (2.5-8.0)
[2017-08-12] MEDS: 0.9 % SODIUM CHLORIDE 10 ML SYRINGE IV SCH (05:56)
[2017-08-12 06:07] LABS: Band Neutrophils % 4 % (0-10); Eosinophils % (Manual) 2 % (0-7); Lymphocytes % 20 % (15-49); Monocytes % (Manual) 11 % (1-12); Platelet Estimate NORMAL (NORMAL); RBC Morphology ABNORM (NORMAL); Segmented Neutrophils % 63 % (38-78)
[2017-08-12] MEDS: HYDROcodone/APAP 5/325MG TABLET PO PRN (08:02)
[2017-08-12] MEDS: DOCUSATE SODIUM 100 MG CAPSULE PO SCH (08:43)
[2017-08-12] MEDS: HEPARIN 5,000 UNIT/ML VIAL SQ SCH (08:43)
--- NOTE | 2017-08-12 09:22 | Discharge Summary ---
Medical - DS: Prov Patient information: Note initiated : 08/12/17 at 9:19 am Service Date, if different from initiated Date: [] Patient: John Aberntahy a 52 y/o M admitted on 08/07/17 for Vomiting Abdominal Pain/ Amphetamine Intoxication. Chief Complaint: [] Date of admission: 08/07/17 18:51 Discharge date: 08/12/17 Consults: 08/07/17 15:08 Consult to Physician [CONS] Stat Comment: Consulting Provider: Candelario Lozano Reason For Exam: Physician to Consult Medical - DS: Meds - Discharge Medications Active and Home Medications: Home Medications No Known Home Meds [No Known Home Meds] 08/07/17 [History Confirmed 08/07/17 Last Taken Unknown] Medical - DS: Hosp Hospital course: Discharge diagnosis * Acute mental status change-secondary to amphetamine intoxication. Resolved after 4 days hospitalization. Near baseline. * Amphetamine intoxication - clinically resolved. Managed with as needed IV benzodiazepines/antipsychotics * Nutrition -on oral diet * Hypertensive urgency-secondary to amphetamine intoxication managed with IV benzodiazepines/nitroprusside * Acute renal failure- clinically resolved. Creatinine down to 0.8 from 6.2 * Mild rhabdomyolysis-clinically resolved * Hypovolemic hyponatremia -clinically resolved * Severe anion gap acidosis secondary to ketosis/volume depletion -resolved Brief hospital course Mr. Abernathy is a 52 year old M with a history of methamphetamine abuse and prior hospitalization with renal failure and methamphetamine intoxication comes in with severe abdominal pain, nausea vomiting and weakness. His symptoms started roughly 36 hours ago with persistent nausea vomiting abdominal pain and inability to eat. Initial workup in the ER was significant for urine drug screen positive for methamphetamine along with blood pressures over 200, sodium 124, white count over 17,000, creatinine over 6, elevated anion gap 28 and mental status changes. Initial troponin was negative. EKG sinus borderline QT elevation. Emergent central line was secured and IV fluids were started. After receiving crystalloids hospitalist service was consulted for admission light of acute renal failure and amphetamine intoxication Left eye evaluation patient is fairly sedated. Blood pressures over 160. He was not able to provide any history. Most of the history is obtained from review of medical records and from [facility]. Patient is afebrile, denies chest pain/diaphoresis. Appears calm 08/08-patient continues to be agitated with blood pressure over 200 requiring frequent benzodiazepine. On close hemodynamic watch. Creatinine down to 3.2 from 6.2 with aggressive crystalloids. CK over 800. White count down from 17.5 -16.1. Continue close hemodynamic monitoring in ICU. Use antipsychotics if inadequate agitation control on benzodiazepines. 08/09-significant agitation and hypertension overnight requiring antipsychotics and Ativan. Started on nitroprusside drip with resultant improvement in blood pressures. This morning off nitroprusside. Weaning Ativan. Continue scheduled Zyprexa. Continue hydration. Creatinine down to 1.6. White count down to 11,000. CK down to 430 from 865. Overall clinical improvement noted. Case was discussed with poison control recommended continuing existing treatment /hydration/repeat CK level. Symptoms may last up to 5 days per poison control. Stable hemodynamics. Continue ICU care. On restraints to prevent injury to self and others 08/10-patient persistently agitated confusion requiring antipsychotics. Systolics however much improved to 140s. Off nitroprusside drip. Attempting to wean benzodiazepines and antipsychotics. Start TPN for nutrition. Continue restraints due to high risk injury self and staff. No overnight telemetry events. Renal function back to baseline creatinine down to 1 from a peak of 6.2 08/11-patient continues to be agitated requiring antipsychotics and benzo has been. Blood pressures around 140s. Attempting to wean off benzodiazepines. CT head rule out secondary process as patient is 72 hours from amphetamine ingestion and symptoms should have resolved including tachycardia and hypertension. Persistence of symptoms may indicate additional etiology including unknown toxic substance ingestion, alcohol withdrawal, substance induced psychosis or a combination of above. Continue close ICU monitoring. Continue TPN until patient able to tolerate orally 08/12-patient much better this morning. Lucid. Foleys discontinued. Tolerating diet. Requesting discharge. Agitation improving. Off sedatives. Stable hemodynamics. Recommend refraining from methamphetamine use Discharge diagnosis: . - Time Spent with Patient Total time spent providing and/or coordinating discharge services: Greater than 30 minutes Medical - DS: Exam - Constitutional Vitals: Vital Signs Temp Pulse Pulse Resp BP BP Pulse Ox 08/12/17 08:09 11 L 08/12/17 08:00 98 08/12/17 07:27 88 17 210/125 99 08/12/17 07:26 82 17 201/129 99 08/12/17 07:16 18 192/112 08/12/17 07:08 20 196/125 08/12/17 06:01 14 125/105 08/12/17 06:00 20 08/12/17 05:01 19 146/87 08/12/17 04:01 17 158/94 08/12/17 03:41 19 138/81 08/12/17 03:21 18 129/80 08/12/17 03:01 15 160/122 08/12/17 02:41 16 155/94 08/12/17 02:21 16 129/75 08/12/17 02:01 11 L 158/66 08/12/17 02:00 100 08/12/17 01:41 17 149/87 08/12/17 01:21 20 145/73 08/12/17 01:03 22 130/78 08/12/17 00:41 22 160/89 08/12/17 00:21 92 H 17 152/115 99 08/12/17 00:01 87 19 137/71 96 08/12/17 00:00 87 20 95 08/11/17 23:59 87 16 138/70 97 08/11/17 23:36 12 139/80 08/11/17 23:31 19 106/66 08/11/17 23:21 24 H 121/86 08/11/17 23:11 19 141/92 08/11/17 23:01 16 127/80 08/11/17 22:31 19 134/81 08/11/17 22:01 23 H 130/80 08/11/17 21:01 21 163/68 08/11/17 20:32 18 133/72 08/11/17 20:00 98 08/11/17 19:57 98.8 F 19 135/91 97 08/11/17 19:51 94 H 20 135/91 96 08/11/17 19:01 24 H 149/82 08/11/17 18:39 26 H 141/92 08/11/17 18:23 100 H 16 98 08/11/17 18:01 13 120/78 100 08/11/17 17:31 98.9 F 21 138/77 100 08/11/17 17:08 20 130/81 100 08/11/17 16:53 97.4 F 56 L 20 114/50 98 08/11/17 16:05 100.0 F H 18 148/77 100 08/11/17 16:00 100 F H 20 148/77 98 08/11/17 15:36 19 122/67 100 08/11/17 15:18 17 137/77 100 08/11/17 15:01 17 127/91 100 08/11/17 14:31 19 169/90 100 08/11/17 14:01 19 189/104 100 08/11/17 14:00 98 H 17 100 08/11/17 13:31 17 186/99 100 08/11/17 13:01 15 194/105 100 08/11/17 12:31 11 L 150/91 100 08/11/17 12:06 17 153/96 97 08/11/17 12:01 99.0 F H 14 189/104 100 08/11/17 12:00 98.2 F 17 153/96 98 08/11/17 11:31 18 182/95 100 08/11/17 11:01 18 176/100 100 08/11/17 10:31 18 155/95 100 08/11/17 10:01 19 159/88 100 08/11/17 09:31 112 H 23 H 165/69 99 Intake and Output 08/11/17 08/12/17 08/12/17 21:59 05:59 13:59 Intake Total 1775 / 1775 388 / 388 621 / 621 Output Total 1195 / 1195 1430 / 1430 425 / 425 Balance 580 / 580 -1042 / -1042 / Intake: IV 1775 / 1775 388 / 388 1 / Intralipid 20% 250 ml In Premix 250 / 250 1 Bag @ 25 mls/hr IV Q24H [facility] Rx#:[id number] Nipride 50 mg In Dextrose 5% in 33 / 33 138 / 138 1 / Water 248 ml @ 0.5 MCG/KG/MIN 9.49 mls/hr IV Q24H [facility] Rx#: [id number] Potassium Chloride 40 Meq 742 / 742 Potassium Phosphate 60 Meq Infuvite Adult 10 ml Selenium 60 Mcg In Clinimix 5%-20% Solution 2,000 ml @ 30 mls/hr IV Q24H [facility] Rx#:[id number] Oral 620 / 620 Output: Urine Catheter Amount 1195 / 1195 1430 / 1430 425 / 425 Other: Weight 136 lb 11.2 oz Medical - DS: Data Labs on day of discharge: Labs from last 24 hours 08/12/17 08/12/17 08/07/17 03:40 03:40 15:59 WBC 10.4 RBC 3.70 L Hgb 11.8 L Hct 34.8 L MCV 94.0 MCH 31.9 MCHC 33.9 RDW 13.2 Plt Count 288 MPV 8.6 Total Counted 100 Seg Neutrophils % 63 Band Neutrophils % 4 Lymphocytes % 20 Monocytes % (Manual) 11 Eosinophils % (Manual) 2 WBC Morphology Abnorm A Vacuolated Monocytes 1+ A Platelet Estimate Normal RBC Morphology Abnorm A RBC Fragments Occ A Sodium 139 Potassium 3.8 Chloride 103 Carbon Dioxide 29 Anion Gap 7.0 L BUN 12 Creatinine 0.8 GFR Calculation 103 Glucose 126 H Uric Acid 2.4 L Calcium 8.6 Phosphorus 3.1 Magnesium 1.7 Total Bilirubin 0.5 Direct Bilirubin < 0.2 GGT 11 AST 20 ALT 18 Alkaline Phosphatase 69 Lactate Dehydrogenase 239 Total Protein 5.4 L Albumin 3.5 Globulin 1.9 L Albumin/Globulin Ratio 1.8 Triglycerides 86 Ur Opiates Confirm Positive U Amphetamines Confirm Positive U Cannabinoids Confirm Positive Preliminary micro results at discharge 08/07/17 16:32 Blood Culture - Preliminary Blood 08/07/17 16:17 Blood Culture - Preliminary Blood Medical - DS: A/P - Patient/Caregiver Discharge Instructions Activity: increase activity as tolerated Diet: Regular Diet Additional Instructions: Refrain from amphetamine use Follow-up PCP in 5 days - Problem Maintenance (1) Amphetamine intoxication delirium Status: Acute - Follow up Plan Disposition: Home, Self-Care Prognosis: Fair Rehab Potential: Fair I certify that the patient requires SNF services: No Overall status at discharge: patient is progressing back to baseline Medical - DS: Qual - VTE Deep Vein Thrombosis/Pulmonary Embolism Present on Admission: No
== END 2017-08-12 10:35 | disposition home or self-care (01) | DRG 897 ==
LOC: ED 10:09 → ICU 18:51
PROVIDERS: ADMIT Internal Medicine; ATTEND Internal Medicine

== ENCOUNTER 2019-03-27 17:46 | Inpatient (IN) ==
[2019-03-27] MEDS ORDERED: PHENobarb/HYOSCY/ATROPINE/SCOP 1 DOSE BOTTLE PO ONE (18:49)
[2019-03-27] MEDS ORDERED: 0.9 % SODIUM CHLORIDE 1,000 ML IV ONE ×3 (19:01→22:20)
--- NOTE | 2019-03-27 19:23 | Emergency Department Note ---
Abdominal Pain HPI - General Chief Complaint: Abdominal Pain Stated Complaint: flu symptoms since last night Time Seen by Provider: 03/27/19 18:46 Source: patient Mode of arrival: ambulatory Limitations: no limitations - History of Present Illness HPI Narrative: This 53-year-old male comes with multiple episodes of vomiting, stating more than 10, since midnight. Also some upper abdominal pain. This is similar to his previous episodes that he has had in the past. There is some pain radiating through to his back. He thinks his kidneys are going back because it seems to be painful in that area on his back. He has had no fevers at home but he has had some chills and sweats with the vomiting but not otherwise. REVIEW OF SYSTEMS: Denies Pain, cough, shortness of breath, constipation, hematochezia. Has had a little bit of diarrhea. Abdominal pain is in the epigastric area. No dysuria Has had some muscle crampiness. Has some generalized weakness and lightheaded/dizziness. Denies anxiety. Has some chronic depression. Has a history of substance abuse. - Related Data Home Medications Medication Instructions Recorded Confirmed No Known Home Meds 08/07/17 03/27/19 Allergies Allergy/AdvReac Type Severity Reaction Status Date / Time No Known Drug Allergies Allergy Verified 03/28/19 02:31 Abdominal Pain PMH - Past Medical History [facility] Narrative: Medical History (Last Updated 03/27/19 @ 19:23 by Fred Belle DO) Acute renal failure (Resolved) History of seizures (Chronic) Hypertension, essential (Chronic) Cigarette smoker (Chronic) PUD (peptic ulcer disease) (Resolved) Amphetamine abuse (Chronic) Abdominal pain (Resolved) Abdominal pain (Resolved) Acute renal failure (Resolved) Amphetamine intoxication delirium (Resolved) Pancreatitis (Resolved) Medical history: Reports: hypertension, renal disease, seizures, other (chronic pain, history of methamphetamine use) - Social History Smoking status: Current every day smoker (1/2 pack/day) Alcohol use: Reports: None Drug use: Reports: opiates, marijuana, methamphetamine (Last use a week ago (stated on 03/27/2019)) Physical Exam Limitations: no limitations General appearance: alert, grimacing, in no apparent distress Head: atraumatic, normocephalic Eye: Present: EOMI ENT: Present: mucous membranes dry (mild) Neck: Present: trachea midline. Absent: lymphadenopathy, thyromegaly Chest: Present: symmetric chest wall rise Respiratory: Present: normal lung sounds bilaterally. Absent: respiratory distress, wheezes, stridor, accessory muscle use, prolonged expiratory phase Cardiovascular: Present: regular rate, normal rhythm. Absent: systolic murmur, diastolic murmur Abdominal: Present: soft, tenderness. Absent: distention, guarding, rebound, rigidity, organomegaly, mass Extremities: Absent: pedal edema, pretibial edema, calf tenderness Back: Absent: CVA tenderness (R), CVA tenderness (L), spinous process tenderness Neurological: Present: alert, oriented X3 Psychiatric: Present: normal affect, normal mood Skin: Present: warm, dry Course Vital Signs Temperature 98.1 F 03/27/19 17:47 Pulse Rate 110 H 03/27/19 17:47 Respiratory Rate 25 H 03/27/19 17:47 Blood Pressure 144/93 03/27/19 17:47 Pulse Oximetry (%) 100 03/27/19 17:47 Temperature 98.1 F 03/27/19 17:47 Pulse Rate 78 03/28/19 02:01 Respiratory Rate 25 H 03/27/19 17:47 Blood Pressure 150/101 03/28/19 02:01 Pulse Oximetry (%) 98 03/28/19 02:01 Abdominal Pain - MDM Narrative Medical decision making narrative: 6:50 PM - nausea and vomiting and abdominal pain epigastric area and a history of similar. Has had pancreatitis in the past as well. Will need labs and will do basic imaging to start with with an single view abdominal film. 8:05 PM - upright abdominal film does not show any significant air-fluid levels. There is some scattered air. 10:30 PM - patient having still significant and major pain in the kidney area with pelvis without contrast because of his kidney function at 3.0 creatinine. He is also getting additional IV fluids. 1:45 AM - CT is negative for intra-abdominal pathology to explain pain or general presentation. - Lab Data Result diagrams: 03/27/19 19:30 03/27/19 19:30 Lab Results 03/27/19 03/27/19 03/27/19 Range/Units 19:30 19:30 19:30 WBC 15.5 H (4.50-11.00) K/mcL RBC 5.62 (4.63-6.08) M/mcL Hgb 18.0 H (13.7-17.5) g/dL Hct 50.8 (40.1-51.0) % MCV 90.4 (80.0-100.0) fL MCH 32.0 (26.0-34.0) pg MCHC 35.4 (31.0-36.0) g/dL RDW 13.0 (11.5-14.5) % Plt Count 573 H (140-440) K/mcL MPV 9.5 (7.4-10.4) fL Gran % 84.0 H (38.0-78.0) % Lymph % (Auto) 10.5 L (15.5-49.0) % [place] % (Auto) 5.2 (1.0-12.0) % Eos % (Auto) 0.1 (0.0-7.0) % Baso % (Auto) 0.2 (0.0-2.0) % Gran # 13.04 H (1.80-8.00) K/mcL Lymph # (Auto) 1.63 (1.50-4.80) K/mcL [place] # (Auto) 0.80 (0.10-0.90) K/mcL Eos # (Auto) 0.01 (0.00-0.70) K/mcL Baso # (Auto) 0.03 (0.00-0.30) K/mcL VBG Lactic Acid 2.8 H (0.5-2.0) mmol/L Sodium 131 L (133-145) mmol/L Potassium 4.2 (3.3-5.1) mmol/L Chloride 87 L (96-108) mmol/L Carbon Dioxide 20 L (22-30) mmol/L Anion Gap 24.0 H (8-16) BUN 33 H (6-20) mg/dl Creatinine 3.0 H (0.7-1.2) mg/dl GFR Calculation 23 Glucose 145 H (70-105) mg/dL Calcium 10.8 H (8.6-10.4) mg/dl Total Bilirubin 0.5 (0.0-1.0) mg/dL AST 17 (0-37) U/l ALT 17 (0-40) U/l Alkaline Phosphatase 122 H (39-117) U/L C-Reactive Protein 0.5 (0.0-0.8) mg/dl Total Protein 9.6 H (5.9-8.4) gm/dL Albumin 5.2 (3.2-5.2) gm/dL Globulin 4.4 H (2.2-3.7) gm/dL Albumin/Globulin Ratio 1.2 (1.0-2.3) Lipase 14 (7-60) U/L Disposition Pt seen by [facility]/PA only: No Clinical Impression: Epigastric abdominal pain Nausea & vomiting Qualifiers: Vomiting type: unspecified Vomiting Intractability: non-intractable Qualified Code(s): R11.2 - Nausea with vomiting, unspecified ARF (acute renal failure) Qualifiers: Acute renal failure type: unspecified Qualified Code(s): N17.9 - Acute kidney failure, unspecified Summary: See above. CT abdomen and pelvis does not show any pathology to explain his pain. He reports multiple episodes of abdominal pain in the past and the admits to using marijuana on a regular basis. This may be a cannabis hyperemesis type of syndrome but this was not further discussed with patient. He has received 3 L of IV fluids in the ER. He is now resting rather peacefully. Case discussed with Dr. David Baugh, hospitalist, who kindly accepts this patient and transitional orders are placed. Disposition: Xfer As Inpt ([facility]) Condition: Fair Referrals: No,PCP [Primary Care Provider] -
[2019-03-27 20:33] LABS: Basophils # (Auto) 0.03 K/mcL (0.00-0.30); Basophils % (Auto) 0.2 % (0.0-2.0); Eosinophils # (Auto) 0.01 K/mcL (0.00-0.70); Eosinophils % (Auto) 0.1 % (0.0-7.0); Hematocrit 50.8 % (40.1-51.0); Lymphocytes # (Auto) 1.63 K/mcL (1.50-4.80); Lymphocytes % (Auto) 10.5 % (15.5-49.0); Mean Cell Volume 90.4 fL (80.0-100.0); Mean Corpuscular HGB Conc 35.4 g/dL (31.0-36.0); Mean Platelet Volume 9.5 fL (7.4-10.4); Monocytes % (Auto) 5.2 % (1.0-12.0); Platelet Count 573 K/mcL (140-440); RBC 5.62 M/mcL (4.63-6.08); WBC 15.5 K/mcL (4.50-11.00)
[2019-03-27 20:51] LABS: ALT/SGPT 17 U/l (0-40); AST/SGOT 17 U/l (0-37); Albumin 5.2 gm/dL (3.2-5.2); Albumin/Globulin Ratio 1.2 (1.0-2.3); Alkaline Phosphatase 122 U/L (39-117); Bilirubin,Total 0.5 mg/dL (0.0-1.0); Blood Urea Nitrogen 33 mg/dl (6-20); C-Reactive Protein 0.5 mg/dl (0.0-0.8); Calcium 10.8 mg/dl (8.6-10.4); Carbon Dioxide 20 mmol/L (22-30); Globulin 4.4 gm/dL (2.2-3.7); Glomerular Filtration Rate 23; Glucose 145 mg/dL (70-105)
[2019-03-27 20:56] LABS: Chloride 87 mmol/L (96-108)
[2019-03-27] MEDS ORDERED: SUCRALFATE 1 GM TABLET PO ONE (21:38)
[2019-03-27] MEDS ORDERED: PANTOPRAZOLE 40 MG VIAL IV ONE (21:38)
[2019-03-27] MEDS ORDERED: SUCRALFATE 1 GM/10 ML ORAL.SUSP PO ONE (21:41)
[2019-03-27] MEDS: HYDROmorphone 2 MG/ML VIAL IV PRN (22:35)
[2019-03-27] MEDS ORDERED: 0.9 % SODIUM CHLORIDE 1,000 ML IV SCH (23:45)
[2019-03-28] MEDS: HYDROmorphone 2 MG/ML VIAL IV PRN ×3 (00:19→16:37)
[2019-03-28] MEDS ORDERED: PROMETHAZINE 25 MG/ML VIAL IM PRN (02:41)
[2019-03-28] MEDS ORDERED: ONDANSETRON 4 MG/2 ML VIAL IV PRN (02:41)
[2019-03-28] MEDS ORDERED: LORazepam 2 MG/ML VIAL IV PRN ×2 (02:47→07:57)
[2019-03-28] MEDS ORDERED: HYDROmorphone 2 MG/ML VIAL IV PRN (02:48)
[2019-03-28 02:53] LABS: Appearance,Urine HAZY; Bacteria,Urine 0 /hpf (0); Bilirubin,Urine NEG (NEG); Color,Urine YELLOW; Culture Indicated,Urine NO; Glucose,Urine (UA) NEGATIVE (NEG); Ketones,Urine NEG (NEG); Leukocyte Esterase,Urine NEG /uL (NEG); Mucus,Urine MANY /hpf (0); Nitrate,Urine NEG (NEG); Protein,Urine 30 mg/dL (NEG); Specific Gravity,Urine 1.026 (1.000-1.035); Urine Blood NEG mg/dL (<0.03); Urine Hyaline Cast 67 /lpf (0-2); Urine RBC 1 /hpf (0-1); Urine Squamous Epithelial Cell < 1 /hpf (0-4); Urine WBC 3 /hpf (0-4); Urobilinogen,Urine NEG (NEG)
--- NOTE | 2019-03-28 04:40 | XRay Report ---
CLINICAL INFORMATION: epigastric pain COMPARISON: 09/21/2015 FINDINGS: Stool gas pattern is unremarkable. There is no free air, soft tissue mass or pathologic calcification. No organomegaly. IMPRESSION: Negative Interpreted and Authenticated by: Jassi Bernabe 03/28/19
[2019-03-28] MEDS: 0.9 % SODIUM CHLORIDE 1,000 ML IV SCH ×2 (04:59→10:24)
--- NOTE | 2019-03-28 05:53 | Cat Scan Report ---
CLINICAL INFORMATION: Epigastric pain COMPARISON: 09/21/[address] TECHNIQUE: 0.625 mm helical slices were obtained from the mid heart through the subtrochanteric regions. Following reconstruction, 2.5 mm sagittal, coronal and axial reformatted images were processed and reviewed at bone and soft tissue windows.The exam was performed using radiation dose optimization techniques including, but not limited to, automated exposure control, adjustment of the mA and/or kV according to patient size and use of iterative reconstruction technique. FINDINGS: Both noncontrasted kidneys are normal and symmetric in size, position and configuration: The left kidney is 11 cm in length and the right kidney is 11.6 cm in length. There is a 9 mm benign fat-containing angiomyolipoma in the lateral mid left kidney which is stable. There is no stone or hydronephrosis. Lung bases show minor groundglass airspace disease in the peripheral left lower lobe which is likely minor scarring or atelectasis. No effusion. The visualized heart is normal. Abdominal images show the noncontrast liver is normal. The gallbladder is surgically absent. Common bile duct is mildly dilated - 8 mm compatible with postcholecystectomy state. Noncontrast pancreas, adrenal glands, spleen and aorta are normal. There is no free air, free fluid or adenopathy. Pelvic images show prostate, seminal vesicles and urinary bladder are normal. Scattered sigmoid diverticula are noted but no evidence of diverticulitis. The remaining colon, appendix, small bowel stomach are normal. Bone windows show no osseous abnormality IMPRESSION: 1. No cause identified for acute abdominal pain. 2. 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 3. Sigmoid diverticulosis Interpreted and Authenticated by: Jassi Bernabe 03/28/19
[2019-03-28] MEDS ORDERED: cloNIDine HCL 0.1 MG TABLET PO PRN (07:48)
[2019-03-28] MEDS ORDERED: LORazepam 2 MG/ML VIAL IV ONE (07:48)
--- NOTE | 2019-03-28 07:53 | Internal Med History&Physical ---
Medical - H&P: [facility] Patient information: Note initiated : 03/28/19 at 7:51 am Service Date, if different from initiated Date: [] Patient: John Abernathy a 53 y/o M admitted on 03/28/19 for flu symptoms since last night. Chief Complaint: [] History of present illness: Mr. Abernathy is a 53 year old M Patient with a history of methamphetamine use does the ED with nausea vomit abdominal pain. Describes upper abdomen. Abdominal pain seemed out of proportion to exam. His lactate was elevated 2.8. He obtained a CT abdomen pelvis which was unremarkable. He had acute kidney injury and was given aggressive IV fluid hydration. He was hypertensive and tachycardic. Similar presentation in the past related to methamphetamine use. Patient was bored and started Saturday night. With nausea vomiting and epigastric abdominal pain described as dull achy nonradiating. He reports hot shower improving symptoms. And eating or drinking made it worse. Uses marijuana frequently. States he uses methamphetamines monthly and last used a while ago. but after confronting him about +UDS he states that he was "around" somebody that was using it /saturday. Denies diarrhea. Last vomiting episode last night. Review of Systems: Pertinent positives as above. Denies headache/fever/chills/chest pain/cough/dyspnea/diarrhea. Remaining 10 point review of system reviewed negative Medical - H&P: H Medical history: Medical History (Last Updated 03/27/19 @ 19:23 by Fred Belle DO) Acute renal failure (Resolved) History of seizures (Chronic) Hypertension, essential (Chronic) Cigarette smoker (Chronic) PUD (peptic ulcer disease) (Resolved) Amphetamine abuse (Chronic) Abdominal pain (Resolved) Abdominal pain (Resolved) Acute renal failure (Resolved) Amphetamine intoxication delirium (Resolved) Pancreatitis (Resolved) Past Surgical History (Last Updated 03/27/19 @ 19:28 by Fred Belle DO) History of cholecystectomy (Acute) Family history: States mother was healthy Father had heart disease Social History Smokes half pack of cigarettes per day Has alcohol use Uses marijuana regularly and states he uses meth monthly Lives by himself Medical - H&P: Meds Home Medications Medication Instructions Recorded Confirmed Type No Known Home Meds 08/07/17 03/27/19 History Allergies Allergy/AdvReac Type Severity Reaction Status Date / Time capsaicin [From Capsin] AdvReac Intermediate Rash Verified 03/28/19 10:50 Medical - H&P: Exam - Constitutional Vitals: Temp Pulse Resp BP Pulse Ox 98.3 F 72 12 163/99 96 03/28/19 05:05 03/28/19 05:17 03/28/19 04:16 03/28/19 05:17 03/28/19 04:16 Exam: General: Alert, Awake, mild distress from pain Eyes/N/T: EOMI, PERRL, dry MM Head/Neck: neck supple, normocephalic atraumatic CV: RRR, No murmurs, normal s1/s2 Pulm: Clear b/l, no wheezing/rhonchi/rales Abd: Tender to palpation epigastrium, +BS x4, no generalized rebound tenderness. Soft Ext: no clubbing/cyanosis/edema Neuro: Alert, no focal deficits, moves all extremities, CN 2-12 grossly intact, symmetrical strength b/l upper/lower, sensations intact b/l upper/lower Skin: warm/dry Psych: anxious/agitated Medical - H&P: Reslt - Labs CBC & Chem 7: 03/28/19 08:02 03/28/19 08:02 Labs: Short CBC 03/27/19 Range/Units 19:30 WBC 15.5 H (4.50-11.00) K/mcL Hgb 18.0 H (13.7-17.5) g/dL Hct 50.8 (40.1-51.0) % Plt Count 573 H (140-440) K/mcL BMP 03/27/19 19:30 Sodium 131 L Potassium 4.2 Chloride 87 L Carbon Dioxide 20 L BUN 33 H Creatinine 3.0 H Glucose 145 H Calcium 10.8 H Liver Function 03/27/19 Range/Units 19:30 Total Bilirubin 0.5 (0.0-1.0) mg/dL AST 17 (0-37) U/l ALT 17 (0-40) U/l Alkaline Phosphatase 122 H (39-117) U/L Albumin 5.2 (3.2-5.2) gm/dL Urine 03/28/19 Range/Units 02:00 Urine Color Yellow Urine Appearance Hazy Urine pH 5.0 (5.0-9.0) Ur Specific [place] 1.026 (1.000-1.035) Urine Protein 30 A (NEG) mg/dL Urine Glucose (UA) Negative (NEG) mg/dL Medical - H&P: A/P - Narrative A/P Narrative: A: *N/V/abdominal pain, 2/2 Cannabis hyperemesis vs methamphetamine intoxication: -CT abdomen pelvis unremarkable for ischemic changes although w/o contrast. abd relatively soft, no generalized rebound, lactic acidosis resolved -UDS with barbituates and Amphetamine *Hypertensive urgency/tachycardia: 2/2 above vs methamphetamine intoxication -Improving on own with pain control and antiemetics *CATHERINE: 2/2 volume depletion -resolving with IVF *Lactic acidosis: REsolved *Metabolic acidosis: 2/2 lactic acidosis, REsolved *Substance Abuse: pt not forthcoming with substance use, story changed a bit after confronting with results of UDS but still vague *Hyponatremia/Hypercalemia: improving P: -IVF -prn Benzo -UDS pending -prn clonidine -antiemetics - -Substance abuse counseling -ppx: lovenox
[2019-03-28 09:03] LABS: Hematocrit 40.4 % (40.1-51.0); Hemoglobin 13.8 g/dL (13.7-17.5); Mean Corpuscular HGB Conc 34.2 g/dL (31.0-36.0); Mean Platelet Volume 9.3 fL (7.4-10.4); Platelet Count 432 K/mcL (140-440); RBC 4.39 M/mcL (4.63-6.08); Red Cell Distribution Width 13.1 % (11.5-14.5); WBC 12.5 K/mcL (4.50-11.00)
[2019-03-28 09:25] LABS: ALT/SGPT 12 U/l (0-40); AST/SGOT 13 U/l (0-37); Albumin 3.7 gm/dL (3.2-5.2); Albumin/Globulin Ratio 1.2 (1.0-2.3); Alkaline Phosphatase 85 U/L (39-117); Bilirubin,Direct < 0.2 mg/dL (0.0-0.3); Bilirubin,Total 0.7 mg/dL (0.0-1.0); Blood Urea Nitrogen 23 mg/dl (6-20); Calcium 8.9 mg/dl (8.6-10.4); Carbon Dioxide 24 mmol/L (22-30); Chloride 95 mmol/L (96-108); Globulin 3.1 gm/dL (2.2-3.7); Glomerular Filtration Rate 69; Glucose 111 mg/dL (70-105); Lactate Dehydrogenase 153 U/L (94-250); Phosphorous 2.3 mg/dL (2.7-4.5); Triglycerides 159 mg/dl (<150); Uric Acid 6.3 mg/dL (2.5-8.0)
[2019-03-28 09:26] LABS: Band Neutrophils % 1 % (0-10); Basophils % (Manual) 1 % (0-2); Lymphocytes % 29 % (15-49); Monocytes % (Manual) 8 % (1-12); Platelet Estimate NORMAL (NORMAL); RBC Morphology NORMAL (NORMAL); Segmented Neutrophils % 61 % (38-78)
[2019-03-28 09:28] LABS: Amphetamine Screen,Urine SUSPECT POSITIVE (NONDETECTED); Barbiturate Screen,Urine SUSPECT POSITIVE (NONDETECTED); Benzodiazepines Screen,Urine NONE DETECTED (NONDETECTED); Cannabinoid Screen,Urine SUSPECT POSITIVE (NONDETECTED); Cocaine Screen,Urine NONE DETECTED (NONDETECTED); Opiate Screen,Urine NONE DETECTED (NONDETECTED); Oxycodone, Urine Screen NONE DETECTED (NONDETECTED); Phencyclidine Screen,Urine NONE DETECTED (NONDETECTED)
[2019-03-28] MEDS ORDERED: MAGNESIUM SULFATE 2 GM/50 ML BAG IV PRN (09:39)
[2019-03-28] MEDS ORDERED: POTASSIUM CHLORIDE 20 MEQ TABLET PO PRN ×2 (09:39)
[2019-03-28] MEDS ORDERED: POLYETHYLENE GLYCOL 3350 17 GM PACKET PO PRN (09:39)
[2019-03-28] MEDS ORDERED: ACETAMINOPHEN 325 MG TABLET PO PRN (09:39)
[2019-03-28] MEDS ORDERED: POTASSIUM CHLORIDE 40 MEQ in DEXTROSE 5% IN WATER 500 ML IV PRN (09:39)
[2019-03-28] MEDS ORDERED: SENNOSIDES 1 TABLET PO PRN (09:39)
[2019-03-28] MEDS ORDERED: diphenhydrAMINE 50 MG/ML VIAL IV PRN (09:42)
[2019-03-28] MEDS ORDERED: CAPSAICIN 0.025% CREAM.TOP 60GM TOPICAL ONE (09:43)
[2019-03-28] MEDS ORDERED: 0.9 % SODIUM CHLORIDE 1,000 ML IV SCH (09:43)
[2019-03-28] MEDS ORDERED: 0.9 % SODIUM CHLORIDE 1,500 ML IV SCH (09:44)
[2019-03-28] MEDS ORDERED: PROMETHAZINE 25 MG/ML VIAL IV PRN (10:00)
[2019-03-28] MEDS: ENOXAPARIN 40 MG/0.4 ML SYRINGE SQ SCH (10:05)
[2019-03-28] MEDS: 0.9 % SODIUM CHLORIDE 10 ML SYRINGE IV SCH ×2 (14:06→20:49)
[2019-03-28] MEDS: ONDANSETRON 4 MG/2 ML VIAL IV PRN (16:37)
[2019-03-28] MEDS: DOCUSATE SODIUM 100 MG CAPSULE PO SCH (20:48)
[2019-03-28] MEDS: FAMOTIDINE 20 MG TABLET PO SCH (20:48)
[2019-03-29] MEDS: HYDROmorphone 2 MG/ML VIAL IV PRN ×5 (01:20→16:50)
[2019-03-29] MEDS: ONDANSETRON 4 MG/2 ML VIAL IV PRN (03:53)
[2019-03-29] MEDS: 0.9 % SODIUM CHLORIDE 10 ML SYRINGE IV SCH ×5 (04:00→20:55)
[2019-03-29 07:11] LABS: Basophils # (Auto) 0.08 K/mcL (0.00-0.30); Basophils % (Auto) 0.9 % (0.0-2.0); Eosinophils # (Auto) 0.08 K/mcL (0.00-0.70); Eosinophils % (Auto) 0.9 % (0.0-7.0); Granulocytes % (Auto) 64.2 % (38.0-78.0); Hematocrit 40.7 % (40.1-51.0); Hemoglobin 13.7 g/dL (13.7-17.5); Lymphocytes # (Auto) 2.45 K/mcL (1.50-4.80); Lymphocytes % (Auto) 26.9 % (15.5-49.0); Mean Cell Volume 94.4 fL (80.0-100.0); Mean Corpuscular HGB Conc 33.7 g/dL (31.0-36.0); Mean Platelet Volume 9.6 fL (7.4-10.4); Monocytes # (Auto) 0.65 K/mcL (0.10-0.90); Monocytes % (Auto) 7.1 % (1.0-12.0); Platelet Count 412 K/mcL (140-440); RBC 4.31 M/mcL (4.63-6.08); Red Cell Distribution Width 12.8 % (11.5-14.5); WBC 9.1 K/mcL (4.50-11.00)
[2019-03-29 07:48] LABS: ALT/SGPT 12 U/l (0-40); AST/SGOT 17 U/l (0-37); Albumin 3.7 gm/dL (3.2-5.2); Albumin/Globulin Ratio 1.3 (1.0-2.3); Alkaline Phosphatase 88 U/L (39-117); Bilirubin,Direct < 0.2 mg/dL (0.0-0.3); Bilirubin,Total 0.8 mg/dL (0.0-1.0); Calcium 9.1 mg/dl (8.6-10.4); Carbon Dioxide 22 mmol/L (22-30); Chloride 97 mmol/L (96-108); Globulin 2.8 gm/dL (2.2-3.7); Glomerular Filtration Rate 86; Glucose 93 mg/dL (70-105); Lactate Dehydrogenase 214 U/L (94-250); Phosphorous 2.4 mg/dL (2.7-4.5); Triglycerides 206 mg/dl (<150); Uric Acid 4.4 mg/dL (2.5-8.0)
--- NOTE | 2019-03-29 07:53 | Internal Med Progress Note ---
Medical - PN: Subj Patient information: Note initiated : 03/29/19 at 7:48 am Service Date, if different from initiated Date: [] Patient: John Abernathy a 53 y/o M admitted on 03/28/19 for flu symptoms since last night. Chief Complaint: [] Interval history: Mr. Abernathy is a 53 year old M Patient with a history of methamphetamine use does the ED with nausea vomit abdominal pain. Describes upper abdomen. Abdominal pain seemed out of proportion to exam. His lactate was elevated 2.8. He obtained a CT abdomen pelvis which was unremarkable. He had acute kidney injury and was given aggressive IV fluid hydration. He was hypertensive and tachycardic. Similar presentation in the past related to methamphetamine use. Patient was bored and started Saturday night. With nausea vomiting and epigastric abdominal pain described as dull achy nonradiating. He reports hot shower improving symptoms. And eating or drinking made it worse. Uses marijuana frequently. States he uses methamphetamines monthly and last used a while ago. but after confronting him about +UDS he states that he was "around" somebody that was usi ng it /saturday. Denies diarrhea. Last vomiting episode last night. 03/29 Patient resting. Feeling better. Still has some lizzy pain but again much better. No nausea vomiting. No diarrhea. No new complaints. Review of Systems: denies headache/fever/chills/vomiting/chest pain/cough/dyspnea/diarrhea. Otherwise see above. - Constitutional Vitals: Vital Signs Temp Pulse Resp BP Pulse Ox 98.8 F 97 H 12 125/89 99 03/29/19 03:12 03/29/19 03:12 03/29/19 03:12 03/29/19 03:12 03/29/19 07:14 Period Temp Pulse Resp BP Sys/Lee Pulse Ox Last 24 Hr 98.2 F-99.1 F 64-97 12-16 125-154/76-89 94-99 Intake and Output 03/28/19 03/29/19 03/29/19 21:59 05:59 13:59 Intake Total 580 2220 240 Output Total 600 975 550 Balance -20 1245 -310 Weight 71.441 kg Intake & Output: Intake & Output 03/28/19 03/29/19 03/29/19 21:59 05:59 13:59 Intake Total 580 2220 240 Output Total 600 975 550 Balance -20 1245 -310 Weight 71.441 kg Intake: IV 1500 Sodium Chloride 0.9% 1,500 ml @ 1500 84 mls/hr IV .[id number] [facility] Rx#: [id number] Oral 580 720 240 Output: Void Amount 600 850 550 Stool 125 Other: Meal Dinner Percent of Meal Consumed 100% Urine Appearance Clear Clear Urine Color Dark Yellow Dark Yellow Bright Yellow Stool Color Brown Stool Consistency Loose Loose # Voids 1 # Bowel Movements 1 Exam: General: Alert, Awake, nad Eyes/N/T: EOMI, Head/Neck: neck supple, CV: RRR, No murmurs, Pulm: Clear b/l, no wheezing/rhonchi/rales Abd: Tender to palpation epigastrium improving, +BS x4,Soft Ext: no clubbing/cyanosis/edema Neuro: Alert, no focal deficits, moves all extremities, Skin: warm/dry Psych: Medical - PN: Obj Da - Labs CBC & Chem 7: 03/29/19 05:05 03/29/19 05:05 Labs: Abnormal Lab Results 03/29/19 03/28/19 03/28/19 05:05 08:02 08:02 WBC 12.5 H RBC 4.31 L 4.39 L Hgb Plt Count Gran % Lymph % (Auto) Gran # VBG Lactic Acid Sodium 132 L Chloride 95 L Carbon Dioxide Anion Gap BUN 23 H Creatinine Glucose 111 H Calcium Phosphorus 2.3 L Alkaline Phosphatase Total Protein Globulin Triglycerides 159 H Urine Protein Hyaline Casts Urine Mucus Ur Barbiturates Screen Ur Amphetamines Screen U Marijuana (THC) Screen 03/28/19 03/28/19 03/27/19 02:00 02:00 19:30 WBC RBC Hgb Plt Count Gran % Lymph % (Auto) Gran # VBG Lactic Acid 2.8 H Sodium Chloride Carbon Dioxide Anion Gap BUN Creatinine Glucose Calcium Phosphorus Alkaline Phosphatase Total Protein Globulin Triglycerides Urine Protein 30 A Hyaline Casts 67 H Urine Mucus Many A Ur Barbiturates Screen Suspect positive A Ur Amphetamines Screen Suspect positive A U Marijuana (THC) Screen Suspect positive A 03/27/19 03/27/19 19:30 19:30 WBC 15.5 H RBC Hgb 18.0 H Plt Count 573 H Gran % 84.0 H Lymph % (Auto) 10.5 L Gran # 13.04 H VBG Lactic Acid Sodium 131 L Chloride 87 L Carbon Dioxide 20 L Anion Gap 24.0 H BUN 33 H Creatinine 3.0 H Glucose 145 H Calcium 10.8 H Phosphorus Alkaline Phosphatase 122 H Total Protein 9.6 H Globulin 4.4 H Triglycerides Urine Protein Hyaline Casts Urine Mucus Ur Barbiturates Screen Ur Amphetamines Screen U Marijuana (THC) Screen Meds: Medications Acetaminophen (Tylenol) 650 mg PO Q6HP PRN PRN Reason: PAIN/FEVER > 101 Clonidine HCl (Catapres) 0.1 mg PO Q4HP PRN PRN Reason: Hypertension sbp>150 Last Admin: 03/28/19 08:55 Dose: 0.1 mg Documented by: Diphenhydramine HCl (Benadryl) 12.5 mg IV Q4HP PRN PRN Reason: Nausea Docusate Sodium (Colace) 100 mg PO BID [facility] Last Admin: 03/28/19 20:48 Dose: Not Given Documented by: Enoxaparin Sodium (Lovenox) 40 mg SQ DAILY [facility] Last Admin: 03/28/19 10:05 Dose: 40 mg Documented by: Famotidine (Pepcid) 20 mg PO BID [facility] Last Admin: 03/28/19 20:48 Dose: 20 mg Documented by: Hydromorphone HCl (Dilaudid) 0.25 - 0.5 mg IV Q2HP PRN; Protocol PRN Reason: Per Pain Protocol Last Admin: 03/29/19 07:02 Dose: 0.5 mg Documented by: Potassium Chloride 40 meq/ (Dextrose) 520 mls @ 130 mls/hr IV UD PRN PRN Reason: Potassium < 3 Magnesium Sulfate (Magnesium Sulfate) 2 gm in 50 mls @ 50 mls/hr IV UD PRN PRN Reason: Magnesium </= 1.6 Lorazepam (Ativan) 0.5 - 1 mg IV Q2HP PRN PRN Reason: Vomiting Ondansetron HCl (Zofran) 4 mg IV Q4HP PRN PRN Reason: Nausea And Vomiting Last Admin: 03/29/19 03:53 Dose: 4 mg Documented by: Polyethylene Glycol (Miralax) 17 gm PO DAILYP PRN PRN Reason: Constipation Potassium Chloride (Kdur) 40 meq PO UD PRN PRN Reason: Potssium is 3-3.5 Potassium Chloride (Kdur) 40 meq PO UD PRN PRN Reason: Potassium < 3 Promethazine HCl (Phenergan) 12.5 mg IV Q6HP PRN PRN Reason: Nausea And Vomiting Senna (Senokot) 2 tab PO DAILYP PRN PRN Reason: Constipation Sodium Chloride (Saline Flush) 10 ml IV Q8 [facility] Last Admin: 03/29/19 07:03 Dose: 10 ml Documented by: Medical - PN: A/P - Time Spent With Patient Total time spent is greater than 50% in coordination of care (as documented) at patient's floor/unit and/or counseling patient: - Narrative A/P Narrative: A: *N/V/abdominal pain, 2/2 Cannabis hyperemesis vs methamphetamine intoxication: Improving -CT abdomen pelvis unremarkable for ischemic changes although w/o contrast. abd relatively soft, no generalized rebound, lactic acidosis resolved -UDS with barbituates and Amphetamine *Hypertensive urgency/tachycardia: 2/2 above vs methamphetamine intoxication -Improved with pain control and antiemetics *CATHERINE: 2/2 volume depletion, resolved with IVF *Lactic acidosis: REsolved *Metabolic acidosis: 2/2 lactic acidosis, REsolved *Substance Abuse: pt not forthcoming with substance use, story changed a bit after confronting with results of UDS but still vague -UDS with amphetamines *Hyponatremia/Hypercalemia: improving P: -IVF d/c, tolerating clear liquid diet, advance to full -prn Benzo -prn clonidine -antiemetics - -Substance abuse counseling -ppx: lovenox
[2019-03-29 08:21] LABS: Blood Urea Nitrogen 14 mg/dl (6-20)
[2019-03-29] MEDS: FAMOTIDINE 20 MG TABLET PO SCH ×2 (09:49→20:52)
[2019-03-29] MEDS: SODIUM CHLORIDE 1 GM TABLET PO SCH ×2 (09:49→20:55)
[2019-03-29] MEDS: ENOXAPARIN 40 MG/0.4 ML SYRINGE SQ SCH (09:49)
[2019-03-29] MEDS: DOCUSATE SODIUM 100 MG CAPSULE PO SCH ×2 (09:50→20:56)
--- NOTE | 2019-03-29 09:50 | Discharge Summary ---
Medical - DS: Prov Patient information: Note initiated : 03/29/19 at 9:48 am Service Date, if different from initiated Date: [] Patient: John Abernathy a 53 y/o M admitted on 03/28/19 for flu symptoms since last night. Chief Complaint: [] Date of admission: 03/28/19 03:28 Discharge date: 03/30/19 Primary care physician: PCP No Consults: 03/28/19 Consult to Physician [CONS] Stat Comment: Consulting Provider: David Baugh Reason For Exam: Physician to Consult Medical - DS: Meds - Discharge Medications Active and Home Medications: Home Medications No Known Home Meds 08/07/17 [History Confirmed 03/27/19 Last Taken Unknown] Medical - DS: Hosp Hospital Course: Mr. Abernathy is a 53 year old M Patient with a history of methamphetamine use does the ED with nausea vomit abdominal pain. Describes upper abdomen. Abdominal pain seemed out of proportion to exam. His lactate was elevated 2.8. He obtained a CT abdomen pelvis which was unremarkable. He had acute kidney injury and was given aggressive IV fluid hydration. He was hypertensive and tachycardic. Similar presentation in the past related to methamphetamine use. Patient was bored and started Saturday night. With nausea vomiting and epigastric abdominal pain described as dull achy nonradiating. He reports hot shower improving symptoms. And eating or drinking made it worse. Uses marijuana frequently. States he uses methamphetamines monthly and last used a while ago. but after confronting him about +UDS he states that he was "around" somebody that was using it /saturday. Denies diarrhea. Last vomiting episode last night. 03/29 Patient resting. Feeling better. Still has some lizzy pain but again much better. No nausea vomiting. No diarrhea. No new complaints. 03/30 Pain better. No nausea vomiting. Tolerating full liquid diet. Counseled him on marijuana use and methamphetamine. Patient says he does not have a problem with methamphetamine and did not want referral to Dr. Mercado. A: *N/V/abdominal pain, 2/2 Cannabis hyperemesis vs methamphetamine intoxication: Improving -CT abdomen pelvis unremarkable for ischemic changes although w/o contrast. abd relatively soft, no generalized rebound, lactic acidosis resolved -UDS with barbituates and Amphetamine *Hypertensive urgency/tachycardia: 2/2 above vs methamphetamine intoxication -Improved with pain control and antiemetics *CATHERINE: 2/2 volume depletion, resolved with IVF *Lactic acidosis: REsolved *Metabolic acidosis: 2/2 lactic acidosis, REsolved *Substance Abuse: pt not forthcoming with substance use, story changed a bit after confronting with results of UDS but still vague -UDS with amphetamines Discharge diagnosis: Nausea vomit abdominal pain cannabis hyperemesis and methamphetamine intoxi Secondary discharge diagnosis: Hypertensive urgency tachycardia from methamphetamine intoxication cute kidney injury lactic acidosis metabolic acidosis substance abuse Imbalance - Time Spent with Patient Total time spent providing and/or coordinating discharge services: Greater than 30 minutes Medical - DS: Exam - Constitutional Vitals: Vital Signs Temp Pulse Resp BP Pulse Ox 03/29/19 08:00 98.8 F 68 16 134/81 98 03/29/19 07:14 99 03/29/19 03:12 98.8 F 97 H 12 125/89 97 03/28/19 23:35 98.8 F 97 H 12 127/86 97 03/28/19 20:00 98.4 F 74 16 127/77 98 03/28/19 15:36 98.2 F 64 16 150/86 99 03/28/19 12:00 98.5 F 74 16 125/76 94 Intake and Output 03/28/19 03/29/19 03/29/19 21:59 05:59 13:59 Intake Total 580 2220 240 Output Total 607 678 6984 Balance -20 1245 -860 Intake: IV 1500 Sodium Chloride 0.9% 1,500 ml @ 1500 84 mls/hr IV .[id number] [facility] Rx#: [id number] Oral 580 720 240 Output: Void Amount 395 198 9630 Stool 125 Other: Meal Dinner Percent of Meal Consumed 100% Urine Appearance Clear Clear Urine Color Dark Yellow Dark Yellow Bright Yellow Stool Color Brown Stool Consistency Loose Loose # Voids 1 # Bowel Movements 1 Weight 71.441 kg Medical - DS: Data Labs on day of discharge: Labs from last 24 hours 03/29/19 03/29/19 03/28/19 05:05 05:05 02:00 WBC 9.1 RBC 4.31 L Hgb 13.7 Hct 40.7 MCV 94.4 MCH 31.8 MCHC 33.7 RDW 12.8 Plt Count 412 MPV 9.6 Gran % 64.2 Lymph % (Auto) 26.9 [place] % (Auto) 7.1 Eos % (Auto) 0.9 Baso % (Auto) 0.9 Gran # 5.85 Lymph # (Auto) 2.45 [place] # (Auto) 0.65 Eos # (Auto) 0.08 Baso # (Auto) 0.08 Sodium 129 L Potassium 4.0 Chloride 97 Carbon Dioxide 22 Anion Gap 10.0 BUN 14 Creatinine 1.0 GFR Calculation 86 Glucose 93 Uric Acid 4.4 Calcium 9.1 Phosphorus 2.4 L Magnesium 2.0 Total Bilirubin 0.8 Direct Bilirubin < 0.2 GGT 16 AST 17 ALT 12 Alkaline Phosphatase 88 Lactate Dehydrogenase 214 Total Protein 6.5 Albumin 3.7 Globulin 2.8 Albumin/Globulin Ratio 1.3 Triglycerides 206 H Ur Opiates Confirm Not Reportable Ur Methadone Confirm Not Reportable Ur Barbiturate Confirm Not Reportable Urine PCP Confirm Not Reportable U Amphetamines Confirm Not Reportable U Benzodiazepine Confm Not Reportable Urine Cocaine Confirm Not Reportable U Cannabinoids Confirm Not Reportable Medical - DS: A/P - Patient/Caregiver Discharge Instructions Activity: increase activity as tolerated Diet: Regular Diet Additional Instructions: Follow-up with PCP in 3 to 7 days. Offer referral to Dr. Mercado for substance abuse - Follow up Plan Follow up with: No,PCP [Primary Care Provider] - Disposition: Home, Self-Care Prognosis: Undetermined Rehab Potential: Fair Overall status at discharge: patient is progressing back to baseline
[2019-03-30] MEDS: HYDROmorphone 2 MG/ML VIAL IV PRN ×2 (03:12→05:55)
[2019-03-30] MEDS: 0.9 % SODIUM CHLORIDE 10 ML SYRINGE IV SCH ×3 (03:12→05:55)
[2019-03-30 06:47] LABS: Blood Urea Nitrogen 11 mg/dl (6-20); Calcium 9.1 mg/dl (8.6-10.4); Carbon Dioxide 22 mmol/L (22-30); Chloride 97 mmol/L (96-108); Glomerular Filtration Rate 97; Glucose 106 mg/dL (70-105)
--- NOTE | 2019-03-30 07:29 | Internal Med Progress Note ---
Medical - PN: Subj Patient information: Note initiated : 03/30/19 at 7:28 am Service Date, if different from initiated Date: [] Patient: John Abernathy a 53 y/o M admitted on 03/28/19 for flu symptoms since last night. Chief Complaint: [] Interval history: Mr. Abernathy is a 53 year old M Patient with a history of methamphetamine use does the ED with nausea vomit abdominal pain. Describes upper abdomen. Abdominal pain seemed out of proportion to exam. His lactate was elevated 2.8. He obtained a CT abdomen pelvis which was unremarkable. He had acute kidney injury and was given aggressive IV fluid hydration. He was hypertensive and tachycardic. Similar presentation in the past related to methamphetamine use. Patient was bored and started Saturday night. With nausea vomiting and epigastric abdominal pain described as dull achy nonradiating. He reports hot shower improving symptoms. And eating or drinking made it worse. Uses marijuana frequently. States he uses methamphetamines monthly and last used a while ago. but after confronting him about +UDS he states that he was "around" somebody that was usi ng it /saturday. Denies diarrhea. Last vomiting episode last night. 03/29 Patient resting. Feeling better. Still has some lizzy pain but again much better. No nausea vomiting. No diarrhea. No new complaints. Review of Systems: denies headache/fever/chills/vomiting/chest pain/cough/dyspnea/diarrhea. Otherwise see above. - Constitutional Vitals: Vital Signs Temp Pulse Resp BP Pulse Ox 98.1 F 87 12 134/96 98 03/30/19 03:23 03/30/19 03:23 03/30/19 03:23 03/30/19 03:23 03/30/19 03:23 Period Temp Pulse Resp BP Sys/Lee Pulse Ox Last 24 Hr 98.1 F-98.8 F 62-87 12-20 133-149/78-96 96-99 Intake and Output 03/29/19 03/30/19 03/30/19 21:59 05:59 13:59 Intake Total 345 240 60 Output Total 375 725 Balance -30 -485 60 Weight 70.534 kg Intake & Output: Intake & Output 03/29/19 03/30/19 03/30/19 21:59 05:59 13:59 Intake Total 345 240 60 Output Total 375 725 Balance -30 -485 60 Weight 70.534 kg Intake: Oral 345 240 60 Output: Void Amount 375 725 Other: Meal Dinner Percent of Meal Consumed 100% Feeding Ability Independent Urine Appearance Clear Clear Urine Color Pale Dark Yellow Exam: General: Alert, Awake, nad Eyes/N/T: EOMI, Head/Neck: neck supple, CV: RRR, No murmurs, Pulm: Clear b/l, no wheezing/rhonchi/rales Abd: Tender to palpation epigastrium improving, +BS x4,Soft Ext: no clubbing/cyanosis/edema Neuro: Alert, no focal deficits, moves all extremities, Skin: warm/dry Psych: Medical - PN: Obj Da - Labs CBC & Chem 7: 03/29/19 05:05 03/30/19 05:05 Labs: Abnormal Lab Results 03/30/19 03/29/19 03/29/19 05:05 05:05 05:05 WBC RBC 4.31 L Hgb Plt Count Gran % Lymph % (Auto) Gran # VBG Lactic Acid Sodium 131 L 129 L Chloride Carbon Dioxide Anion Gap BUN Creatinine Glucose 106 H Calcium Phosphorus 2.4 L Alkaline Phosphatase Total Protein Globulin Triglycerides 206 H Urine Protein Hyaline Casts Urine Mucus Ur Barbiturates Screen Ur Amphetamines Screen U Marijuana (THC) Screen 03/28/19 03/28/19 03/28/19 08:02 08:02 02:00 WBC 12.5 H RBC 4.39 L Hgb Plt Count Gran % Lymph % (Auto) Gran # VBG Lactic Acid Sodium 132 L Chloride 95 L Carbon Dioxide Anion Gap BUN 23 H Creatinine Glucose 111 H Calcium Phosphorus 2.3 L Alkaline Phosphatase Total Protein Globulin Triglycerides 159 H Urine Protein Hyaline Casts Urine Mucus Ur Barbiturates Screen Suspect positive A Ur Amphetamines Screen Suspect positive A U Marijuana (THC) Screen Suspect positive A 03/28/19 03/27/19 03/27/19 02:00 19:30 19:30 WBC RBC Hgb Plt Count Gran % Lymph % (Auto) Gran # VBG Lactic Acid 2.8 H Sodium 131 L Chloride 87 L Carbon Dioxide 20 L Anion Gap 24.0 H BUN 33 H Creatinine 3.0 H Glucose 145 H Calcium 10.8 H Phosphorus Alkaline Phosphatase 122 H Total Protein 9.6 H Globulin 4.4 H Triglycerides Urine Protein 30 A Hyaline Casts 67 H Urine Mucus Many A Ur Barbiturates Screen Ur Amphetamines Screen U Marijuana (THC) Screen 03/27/19 19:30 WBC 15.5 H RBC Hgb 18.0 H Plt Count 573 H Gran % 84.0 H Lymph % (Auto) 10.5 L Gran # 13.04 H VBG Lactic Acid Sodium Chloride Carbon Dioxide Anion Gap BUN Creatinine Glucose Calcium Phosphorus Alkaline Phosphatase Total Protein Globulin Triglycerides Urine Protein Hyaline Casts Urine Mucus Ur Barbiturates Screen Ur Amphetamines Screen U Marijuana (THC) Screen Meds: Medications Acetaminophen (Tylenol) 650 mg PO Q6HP PRN PRN Reason: PAIN/FEVER > 101 Clonidine HCl (Catapres) 0.1 mg PO Q4HP PRN PRN Reason: Hypertension sbp>150 Last Admin: 03/28/19 08:55 Dose: 0.1 mg Documented by: Diphenhydramine HCl (Benadryl) 12.5 mg IV Q4HP PRN PRN Reason: Nausea Docusate Sodium (Colace) 100 mg PO BID [facility] Last Admin: 03/29/19 20:56 Dose: Not Given Documented by: Enoxaparin Sodium (Lovenox) 40 mg SQ DAILY [facility] Last Admin: 03/29/19 09:49 Dose: 40 mg Documented by: Famotidine (Pepcid) 20 mg PO BID [facility] Last Admin: 03/29/19 20:52 Dose: 20 mg Documented by: Hydromorphone HCl (Dilaudid) 0.25 - 0.5 mg IV Q2HP PRN; Protocol PRN Reason: Per Pain Protocol Last Admin: 03/30/19 05:55 Dose: 0.5 mg Documented by: Potassium Chloride 40 meq/ (Dextrose) 520 mls @ 130 mls/hr IV UD PRN PRN Reason: Potassium < 3 Magnesium Sulfate (Magnesium Sulfate) 2 gm in 50 mls @ 50 mls/hr IV UD PRN PRN Reason: Magnesium </= 1.6 Lorazepam (Ativan) 0.5 - 1 mg IV Q2HP PRN PRN Reason: Vomiting Ondansetron HCl (Zofran) 4 mg IV Q4HP PRN PRN Reason: Nausea And Vomiting Last Admin: 03/29/19 03:53 Dose: 4 mg Documented by: Polyethylene Glycol (Miralax) 17 gm PO DAILYP PRN PRN Reason: Constipation Potassium Chloride (Kdur) 40 meq PO UD PRN PRN Reason: Potssium is 3-3.5 Potassium Chloride (Kdur) 40 meq PO UD PRN PRN Reason: Potassium < 3 Promethazine HCl (Phenergan) 12.5 mg IV Q6HP PRN PRN Reason: Nausea And Vomiting Senna (Senokot) 2 tab PO DAILYP PRN PRN Reason: Constipation Sodium Chloride (Saline Flush) 10 ml IV Q8 [facility] Last Admin: 03/30/19 05:55 Dose: 10 ml Documented by: Medical - PN: A/P - Time Spent With Patient Total time spent is greater than 50% in coordination of care (as documented) at patient's floor/unit and/or counseling patient: - Narrative A/P Narrative: A: *N/V/abdominal pain, 2/2 Cannabis hyperemesis vs methamphetamine intoxication: Improving -CT abdomen pelvis unremarkable for ischemic changes although w/o contrast. abd relatively soft, no generalized rebound, lactic acidosis resolved -UDS with barbituates and Amphetamine *Hypertensive urgency/tachycardia: 2/2 above vs methamphetamine intoxication -Improved with pain control and antiemetics *CATHERINE: 2/2 volume depletion, resolved with IVF *Lactic acidosis: REsolved *Metabolic acidosis: 2/2 lactic acidosis, REsolved *Substance Abuse: pt not forthcoming with substance use, story changed a bit after confronting with results of UDS but still vague -UDS with amphetamines *Hyponatremia/Hypercalemia: improving P: -IVF d/c, tolerating clear liquid diet, advance to full -prn Benzo -prn clonidine -antiemetics - -Substance abuse counseling -ppx: lovenox
[2019-03-30] MEDS: DOCUSATE SODIUM 100 MG CAPSULE PO SCH (09:09)
[2019-03-30] MEDS: ENOXAPARIN 40 MG/0.4 ML SYRINGE SQ SCH (09:09)
[2019-03-30] MEDS: FAMOTIDINE 20 MG TABLET PO SCH (09:11)
[2019-04-03 13:44] LABS: Cannabinoid Confirmation POSITIVE (N)
== END 2019-03-30 09:50 | disposition home or self-care (01) | DRG 897 ==
LOC: ED 17:46 → ICU 03-28 03:28
PROVIDERS: ADMIT Internal Medicine; ATTEND Internal Medicine